=== PATIENT | female | born 1955 | race Caucasian/White ===

== ENCOUNTER 2017-10-12 10:14 | Inpatient (IN) | payer BC ==
[~2017-10-12] VITALS: Ht 160 cm; Wt 103.8 kg
[2017-10-12] MEDS ORDERED: MOM 30ML SUSPENSION UDC PO PRN (12:30)
[2017-10-12] MEDS ORDERED: oxyCODONE 5MG TAB PO PRN (12:30)
[2017-10-12] MEDS ORDERED: BISACODYL 5 MG TAB PO PRN (12:30)
[2017-10-12 14:24] VITALS: BP 134/68
[2017-10-12] MEDS: OMEPRAZOLE 20 MG CAP PO SCH (14:24)
[2017-10-12] MEDS: LEVOTHYROXINE 100MCG TABLET (0.1MG) PO SCH (14:24)
[2017-10-12] MEDS: DULoxetine 30 MG CAP (CYMBALTA) PO SCH (14:24)
[2017-10-12 15:02] LABS: MEAN CORPUSCULAR HEMOGLOBIN 29.2 pg (27.0-33.0); MEAN CORPUSCULAR HGB CONC 31.6 g/dl (32.0-36.5); MEAN CORPUSCULAR VOLUME 92.2 fl (80.0-96.0); PLATELET COUNT, AUTOMATED 169 10^3/uL (150-450); RED CELL DISTRIBUTION WIDTH 15.7 % (11.5-14.5); WHITE BLOOD COUNT 6.8 10^3/uL (4.0-10.0)
[2017-10-12] MEDS ORDERED: LYRI200C PO (15:17)
[2017-10-12] MEDS ORDERED: MELA1TAB PO (15:17)
[2017-10-12] MEDS ORDERED: DOCU100C16 PO (15:17)
[2017-10-12] MEDS ORDERED: DULO1CAP2 PO (15:17)
[2017-10-12] MEDS ORDERED: ROPI0.5T PO (15:17)
[2017-10-12] MEDS ORDERED: TRAZ-136 PO (15:17)
[2017-10-12] MEDS ORDERED: CETI10TA PO (15:17)
[2017-10-12] MEDS ORDERED: BUTR5DIS TD (15:17)
[2017-10-12] MEDS ORDERED: TYLE500T78 PO (15:17)
[2017-10-12] MEDS ORDERED: MILKSUS PO (15:17)
[2017-10-12] MEDS ORDERED: OMEP20CA3 PO (15:17)
[2017-10-12] MEDS ORDERED: SENN1TAB10 PO (15:17)
[2017-10-12] MEDS ORDERED: LEVO100T5 PO (15:17)
[2017-10-12] MEDS: CETIRIZINE (ZyrTEC) 10 MG TAB PO SCH (17:13)
[2017-10-12] MEDS: CEPHALEXIN 500 MG CAP PO SCH ×2 (18:19→21:42)
[2017-10-12] MEDS: ASPIRIN 325 MG TAB PO SCH (18:37)
--- NOTE | 2017-10-12 19:48 | PMRHPE ---
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 Patient's course complicated by deep venous thrombosis (DVT) in the left lower extremity leading to inferior vena cava (IVC) filter placement yesterday and sciatic nerve dissection. HISTORY OF PRESENT ILLNESS: Patient is a 62-year-old white female with 4 year history of left hip and thigh pain that was discovered to be a chondrosarcoma for which she ended up having the radical surgery on 09/22/2017. The patient has been started in physical and occupational therapy, having to be somewhat limited in her skills, mainly doing bed exercises and activities until her thoracic pil-zpbq-nxkze-foot-orthosis was completed, and then she has been started on some gaiting and is now felt to be able to participate in and has expressed great willingness to participate in acute intensive rehabilitation. The patient is right-handed and this has not been affected by her tumor or surgery. PAST MEDICAL HISTORY: Includes morbid obesity, restless leg syndrome, hypothyroidism, nerve pain. The patient with known findings in her right ankle and possible other thigh. Other past medical history includes anxiety, arthritis, depression, gastroesophageal reflux disease (GERD), chronic low back pain. PAST SURGICAL HISTORY: Includes prior foot surgery, tonsillectomy, bilateral bunions. SOCIAL HISTORY: Patient lives with her in a three story house, however they are able to function on the first story, in [place], [place] and have a ramp that leads up to the front door, and bedroom, bath, and kitchen are all on the first level. The patient has never smoked, never used smokeless tobacco, does not use alcohol or illicit drugs. FAMILY HISTORY: Includes cancer in her mother and sister, arthritis in her mother, diabetes in her sister, hip fracture in her sister, and cancer in her sister. ALLERGIES: Patient has no known allergies. MEDICATION ON ADMISSION: - Tylenol 500 mg every 6 hours as needed for pain or fever - aspirin 325 mg daily - Dulcolax tablets 5 mg daily as needed for constipation - Keflex 500 mg every 8 hours times 10 days for prophylaxis - Zyrtec 10 mg daily for allergies - Cymbalta 90 mg daily - Synthroid 100 mcg daily for hypothyroidism - milk of magnesia 30 mL daily as needed for constipation - omeprazole 20 mg daily for GERD - oxycodone 5 mg every 4 hours as needed for moderate to severe pain - Lyrica 200 mg twice a day for nerve pain - Requip 1.5 mg nightly for restless leg syndrome - trazodone 200 mg nightly for sleep and mood REVIEW OF SYSTEMS: Is as noted above with left lower extremity hip pain. PHYSICAL EXAMINATION: The patient is a short, morbidly obese, alert, well oriented, pleasant, late middle aged, white female who looks about stated age of 62. The patient is 5 feet 3 inches, weighs 106.6 kg on the bed scale on admission. VITAL SIGNS: Temperature 98.8, blood pressure 134/68, with pulse 95, respirations 18, and pulse oximetry 94% on room air. HEENT: Normocephalic/atraumatic. Pupils are equal, round, reactive to light and accommodation. Extraocular motions are intact. Oropharynx without significant lesions. Tongue is midline. No facial drooping noted. Hearing is good. NECK: Supple. LUNGS: Clear in all rodriguez to auscultation. CORONARY: Shows regular rate and rhythm with normal S1, S2, without S3 or S4 murmurs or rubs. The patient with good warmth and perfusion of all extremities and functional range of motion of bilateral upper and right lower extremity with notable guarding of the left lower extremity at this time but in appropriate adducted external rotated position in bed. ABDOMEN: Obese, nontender with normal bowel sounds in all quadrants. NEUROLOGIC: The patient is alert and oriented to person, place, time, and situation. Speech is clear, coherent, and appropriate. Affect is pleasant and cooperative. Memory appears to be intact. Mood is good, pleasant and cooperative. Light touch is intact in bilateral upper and right lower extremity and anterior left lower extremity. Posterior left lower extremity not tested at this time. Patient with healing lateral left thigh incision. LABORATORY DATA: The patient had moderate to severe anemia, however laboratory shows hemoglobin and hematocrit of 9.3 and 29.4 on admission, so no transfusion will be needed. DIAGNOSTIC DATA: The patient, who was just transported up from [facility], did not have accompanying images and I will get baseline AP and lateral hip and knee , which should include the thigh and the megaprosthesis to serve as a baseline in case of any movements, pain, or changes in status in the left lower extremity. ASSESSMENT/PLAN: 1. Rehabilitation of left total hip arthroplasty, knee arthroplasty, and femoral shaft due to radical resection of chondrosarcoma of the left thigh. The patient will start in a program of physical and occupational therapy 3 hours per day in divided sessions to try and regain basic activities of daily living and mobility using the thoracic sgm-bgme-svmhe-foot-orthosis to learn how to on and off it for whenever she is up and to build up strength, balance, and control of both lower extremities, and regain modified independence in other activities of daily living and mobility. She does have a supportive and the home environment is conducive to using a wheelchair or walker. However, for the multiple medical appointments the patient will be facing in the future, the more mobile she is, especially with a front wheel walker, the better off she will be. I am anticipating patient will require 14 days. Part of this will also depend on the amount of weakness related to the sciatic nerve involvement in the surgery. 2. Morbid obesity. Patient is on a regular diet, however we will look at appropriate calorie levels, but hopefully normal 2000 calorie diet with the increase in activity should be appropriate, if not a dietary consult will be obtained. 3. Atherosclerotic cardiovascular disease including hypertension. At this point, patient is normotensive and is not requiring any blood pressure medications. We will observe for that. 4. Hypothyroidism. Will proceed with levothyroxine. 5. Chronic back pain/arthritis and nerve pain. The patient will continue with Cymbalta and Lyrica along with nighttime trazodone to assist sleeping, all of these having good analgesic and especially neuropathic pain benefits. The patient will also have oxycodone for the thigh pain and other pain available to her. 6. The patient will be followed by the medicine service with physiatry, physical therapy (PT)/occupational therapy (OT), rehabilitation nursing, as she does have some complexity to her condition, but essentially with the extent of her multiple surgeries and the artificial femur, patient is very complex and providing appropriate structure as well as trying to keep her medical status stable is going to be critical for her. POSTADMISSION PHYSICIAN EVALUATION: The patient is doing a bit better as far as attention and alertness compared to the notes received from [facility], as well as not having the anemia reported with a hemoglobin of 8.1 being the most recent one. The DVT will be treated with aspirin and the inferior vena cava filter at this time, plus trying to progress patient in gaining mobility and trying to keep fluid status appropriate. I do feel that she is highly motivated and I do feel she has a very good support system and a very good environment to be discharged to, and therefore I think she has a good prognosis to participate and benefit from acute intensive rehabilitation and return to home with her in approximately 14 days, further adjustment dependent on how she functions will be addressed. Time spent on chart review, history and physical (H and P), and documentation is greater than 70 minutes. MARIO
[2017-10-12 20:30] VITALS: BP 133/64
[2017-10-12] MEDS: PREGABALIN 100 MG CAP (LYRICA) PO SCH (21:43)
[2017-10-12] MEDS: traZODone 100 MG TAB PO SCH (21:43)
[2017-10-12] MEDS: rOPINIRole 1MG TAB PO SCH (21:43)
[2017-10-13 06:00] VITALS: BP 121/69
[2017-10-13] MEDS: LEVOTHYROXINE 100MCG TABLET (0.1MG) PO SCH (06:02)
[2017-10-13] MEDS: CEPHALEXIN 500 MG CAP PO SCH ×3 (06:03→21:18)
[2017-10-13 06:49] LABS: BASO % 0.3 % (0.0-1.0); EOS # 0.1 10^3/uL (0.0-0.50); EOS % 1.4 % (0.0-3.0); IMMATURE GRANULOCYTE % 0.8 % (0-0); LYMPH # 1.3 10^3/uL (1.5-4.5); LYMPH % 22.6 % (24.0-44.0); MEAN CORPUSCULAR HEMOGLOBIN 29.6 pg (27.0-33.0); MEAN CORPUSCULAR HGB CONC 31.7 g/dl (32.0-36.5); MEAN CORPUSCULAR VOLUME 93.2 fl (80.0-96.0); MONO # 0.4 10^3/uL (0.0-0.8); MONO % 7.3 % (0.0-5.0); NEUTROPHILS % 67.6 % (36.0-66.0); PLATELET COUNT, AUTOMATED 154 10^3/uL (150-450); WHITE BLOOD COUNT 5.9 10^3/uL (4.0-10.0)
[2017-10-13 07:16] LABS: ALBUMIN 2.5 GM/DL (3.2-5.2); ALBUMIN/GLOBULIN RATIO 0.86 (1.00-1.93); ALKALINE PHOSPHATASE 52 U/L (45-117); ALT/SGPT 30 U/L (12-78); ANION GAP 6 MEQ/L (8-16); AST/SGOT 18 U/L (7-37); BILIRUBIN,TOTAL 0.3 MG/DL (0.2-1.0); BLOOD UREA NITROGEN 5 MG/DL (7-18); CARBON DIOXIDE LEVEL 29 MEQ/L (21-32); CHLORIDE LEVEL 107 MEQ/L (98-107); CREATININE FOR GFR 0.49 MG/DL (0.55-1.02); GLOMERULAR FILTRATION RATE > 60.0 (>45); GLUCOSE, FASTING 108 MG/DL (80-110); POTASSIUM SERUM 3.6 MEQ/L (3.5-5.1); SODIUM LEVEL 142 MEQ/L (136-145); TOTAL PROTEIN 5.4 GM/DL (6.4-8.2)
[2017-10-13] MEDS: DULoxetine 30 MG CAP (CYMBALTA) PO SCH (08:32)
[2017-10-13] MEDS: OMEPRAZOLE 20 MG CAP PO SCH (08:32)
[2017-10-13] MEDS: CETIRIZINE (ZyrTEC) 10 MG TAB PO SCH (08:33)
[2017-10-13] MEDS: PREGABALIN 100 MG CAP (LYRICA) PO SCH ×2 (08:34→21:18)
[2017-10-13] MEDS: ASPIRIN 325 MG TAB PO SCH (08:34)
--- NOTE | 2017-10-13 08:48 | REP ---
Clinical: Pain. Technique: Neutral and cross-table lateral views of the left hip. Findings: The patient is status post left femoral replacement. There is no evidence for dislocation. Surrounding soft tissues demonstrate surgical clips and small amount of suspected subcutaneous emphysema which should be correlated clinically. Impression: Status post total left femur replacement. Signed by David Miller MD 10/13/2017 08:40 A
--- NOTE | 2017-10-13 08:54 | REP ---
Clinical: Status post replacement. Technique: AP and lateral views of the left knee. Findings: The patient appears to be status post total femur/knee replacement. Satisfactory alignment to the prosthetic femur and tibial hardware is appreciated. Overlying postsurgical changes are suggested. Impression: Status post femur and knee replacement. Signed by David Miller MD 10/13/2017 08:45 A
[2017-10-13] MEDS ORDERED: AZITHROMYCIN 250 MG TAB PO ONE (09:00)
--- NOTE | 2017-10-13 10:42 | IPNPDOC ---
PM&R Progress Note Glove Cutter Progress Note DATE OF SERVICE: 10/13/17 DATE OF ADMISSION: Oct 12, 2017 at 14:24 INPATIENT REHABILITATION ADMISSION DAY: #2 SUBJECTIVE: Patient is a 62-year-old white female with 4 year history of left hip and thigh pain that was discovered to be a chondrosarcoma for which she ended up having the radical surgery on 09/22/2017 with total femur removal and the sciatic nerve was handled. The patient has expressed great willingness to participate in acute intensive rehabilitation. The patient is right-handed dominant and this has not been affected by her tumor or surgery. She is to use the THKAFO when out of bed. She has left foot drop and some sensory deficits. Pain is fairly well controlled. Patient is on Keflex for 10 days, but UA suggests patient with UTI and patient with apparent fungal rash of buttocks/ perianal/groin region. No complaints today and patient very motivated for starting therapies. ALLERGIES: See Below MEDICATIONS: Reviewed, see below. OBJECTIVE: VITAL SIGNS: Please see below. PHYSICAL EXAMINATION: GENERAL: Morbidly obese middle-aged white female in mild musculoskeletal distress standing with her hip adduction/AFO brace on. Patient alert and well oriented. HEENT: Normocephalic/atraumatic. CARDIOVASCULAR: Regular rate and rhythm with normal S1 and S2. 2/4 bilateral radial pulses. LUNGS: All rodriguez clear to auscultation. ABDOMEN: Obese with healing umbilical incision and normal bowel sounds in all quadrants. NEUROLOGICAL: Patient alert and oriented 4. Speech is clear coherent and appropriate. Affect is pleasant cooperative. Memory is intact. Bilateral upper extremity are sensory motor intact. Right lower extremity is sensory motor intact. Decreased sensation and foot drop in the left lower extremity in the sciatic innervated areas. SKIN: Rash on buttocks and perianal area appears to be fungal. LABORATORY DATA: Reviewed. Please see below. MICROBIOLOGY: Please see below. IMAGING: EXAMINATION REQUESTED: Hip, Ap,Lat LEFT REASON FOR PATIENT VISIT: LEFT KNEE AND HIP REPLACEMENT REASON FOR EXAM/COMMENT: New admit with Left CANDACE/Megaprosthesis/TKA, Use THKAFO Clinical: Pain. Technique: Neutral and cross-table lateral views of the left hip. Findings: The patient is status post left femoral replacement. There is no evidence for dislocation. Surrounding soft tissues demonstrate surgical clips and small amount of suspected subcutaneous emphysema which should be correlated clinically. Impression: Status post total left femur replacement. Signed by David Miller MD 10/13/2017 08:40 A DD: aDvid Miller MD 10/13/17 [id number] DS: BELKIS 10/13/1740 10/13/17 0840 EXAMINATION REQUESTED: Knee, Ap, Lat LEFT REASON FOR PATIENT VISIT: LEFT KNEE AND HIP REPLACEMENT REASON FOR EXAM/COMMENT: New admit with Left CANDACE/Megaprosthesis/TKA, Use THKAFO Clinical: Status post replacement. Technique: AP and lateral views of the left knee. Findings: The patient appears to be status post total femur/knee replacement. Satisfactory alignment to the prosthetic femur and tibial hardware is appreciated. Overlying postsurgical changes are suggested. Impression: Status post femur and knee replacement. Signed by David Miller MD 10/13/2017 08:45 A DD: David Miller MD 10/13/17 [id number] DS: BELKIS 10/13/1745 10/13/1745 DVT prophylaxis ordered?: Aspirin and JO ANN Hose. ASSESSMENT AND PLAN: 1. Rehabilitation of left CANDACE femur replacement and TKA secondary to radical resection of femur for chondrosarcoma: Patient very motivated and happy to start therapy today. She is a bit decondition but without complaints. Physical occupational therapy evaluations to proceed today. After discharge patient will be requiring further evaluation and care by orthopedics and by oncology as in her discharge plan. 2. Anemia: H&H is 9.2 and 29.0% today on 10/13/17 which is stable compared to admission H and H last night. We will continue to watch this as patient had been previously severely anemic. 3. Urinary tract infection: UA is highly consistent with a UTI though urine [employer] is likely be negative in light of patient being on Keflex. However I will go ahead and start patient on Z-wero empirically to broaden antibiotic spectrum. Currently WBC is not suggestive infection at 5.9. We will observe to see how patient is doing. 4. Hypoalbuminemia: Albumin 2.5 today on 10/13/17. We will continue to observe and try improve nutrition as patient is certainly stressed by the extensive left thigh surgery. TIME SPENT: Chart Review, examination and documentation require greater than 25 minutes. Allergies Coded Allergies: No Known Allergies (Unverified , 10/12/17) Vital Signs Vital Signs Date Time Temp Pulse Resp B/P (MAP) Pulse Ox O2 Delivery O2 Flow Rate FiO2 10/13/17 06:00 99.2 94 16 121/69 (86) 96 Room Air Laboratory Data CBC/BMP Laboratory Tests 10/12/17 14:45 Red Blood Count 3.19 L, Mean Corpuscular Volume 92.2, Mean Corpuscular Hemoglobin 29.2, Mean Corpuscular Hemoglobin Concent 31.6 L, Red Cell Distribution Width 15.7 H 10/13/17 06:37 Calcium Level 8.0 L, Aspartate Amino Transf (AST/SGOT) 18, Alanine Aminotransferase (ALT/SGPT) 30, Alkaline Phosphatase 52, Total Bilirubin 0.3, Total Protein 5.4 L, Albumin 2.5 L 10/13/17 06:38 Red Blood Count 3.11 L, Mean Corpuscular Volume 93.2, Mean Corpuscular Hemoglobin 29.6, Mean Corpuscular Hemoglobin Concent 31.7 L, Red Cell Distribution Width 16.0 H, Neutrophils (%) (Auto) 67.6 H, Lymphocytes (%) (Auto ) 22.6 L, Monocytes (%) (Auto) 7.3 H, Eosinophils (%) (Auto) 1.4, Basophils (%) (Auto) 0.3, Neutrophils # (Auto) 4.0, Lymphocytes # (Auto) 1.3 L, Monocytes # ( Auto) 0.4, Eosinophils # (Auto) 0.1, Basophils # (Auto) 0.0 Labs 24H Laboratory Tests 2 10/12/17 14:45: Nucleated Red Blood Cells % (auto) 0.0 10/13/17 04:05: Urine Appearance CLOUDYH, Urine Color YELLOW, Urine pH 7.0, Urine Specific [place] 1.005, Urine Protein 1+H, Urine Glucose (UA) NEGATIVE, Urine Ketones NEGATIVE, Urine Urobilinogen 0.2, Urine Bilirubin NEGATIVE, Urine Leukocyte Esterase 3+H, Urine Blood 2+H, Urine Nitrite POSITIVE, Urine WBC (Auto) TNTCH, Urine RBC (Auto) 30H, Urine Hyaline Casts (Auto) 0, Urine Bacteria (Auto) 3+H, Urine Squamous Epithelial Cells 0, Urine Mucus (Auto) SMALL, Urine Sperm (Auto) 10/13/17 06:37: Anion Gap 6L, Glomerular Filtration Rate > 60.0, Blood Urea Nitrogen 5L, Creatinine 0.49L, Sodium Level 142, Potassium Level 3.6, Chloride Level 107, Carbon Dioxide Level 29, Calcium Level 8.0L, Aspartate Amino Transf (AST/SGOT) 18, Alanine Aminotransferase (ALT/SGPT) 30, Alkaline Phosphatase 52, Total Bilirubin 0.3, Total Protein 5.4L, Albumin 2.5L, Albumin/Globulin Ratio 0.86L 10/13/17 06:38: Nucleated Red Blood Cells % (auto) 0.0, Immature Granulocyte % (Auto) 0.8H, White Blood Count 5.9, Red Blood Count 3.11L, Hemoglobin 9.2L, Hematocrit 29.0L , Mean Corpuscular Volume 93.2, Mean Corpuscular Hemoglobin 29.6, Mean Corpuscular Hemoglobin Concent 31.7L, Red Cell Distribution Width 16.0H, Platelet Count 154, Neutrophils (%) (Auto) 67.6H, Lymphocytes (%) (Auto) 22.6L, Monocytes (%) (Auto) 7.3H, Eosinophils (%) (Auto) 1.4, Basophils (%) (Auto) 0.3 , Neutrophils # (Auto) 4.0, Lymphocytes # (Auto) 1.3L, Monocytes # (Auto) 0.4, Eosinophils # (Auto) 0.1, Basophils # (Auto) 0.0, Immature Granulocyte # (Auto) 0.1H Microbiology Microbiology 10/13/17 Urine Culture, Received Pending Current Medications Current Medications Current Medications Acetaminophen (Tylenol Tab) 500 mg Q6HP PRN PO PAIN OR FEVER; Start 10/12/17 at 12:30; Stop 11/11/17 at 12:29 Aspirin (Aspirin) 325 mg DAILY PO Last administered on 10/13/17t 08:34; Start 10/12/17 at 09:00; Stop 11/11/17 at 08:59 Azithromycin (Zithromax Tab) 250 mg DAILY PO ; Start 10/14/17 at 09:00; Stop 10/18/17 at 12:00 Bisacodyl (Dulcolax Tab) 5 mg DAILYPRN PRN PO CONSTIPATION; Start 10/12/17 at 12:30; Stop 11/11/17 at 12:29 Cephalexin Monohydrate (Keflex) 500 mg Q8H PO Last administered on 10/13/17 06:03; Start 10/12/17 at 14:00; Stop 10/22/17 at 13:59 Cetirizine HCl (ZyrTEC) 10 mg DAILY PO ; Start 10/12/17 at 09:00; Stop at 09:57; Status DC Duloxetine HCl (Cymbalta) 90 mg DAILY PO Last administered on 10/13/17 08:32 ; Start 10/12/17 at 09:00; Stop 11/11/17 at 08:59 Home Med (Med Rec Complete!) ASDIRECTED XX ; Start 10/12/17 at 15:30; Stop at 15:30; Status DC Levothyroxine Sodium (Synthroid) 100 mcg DAILY@06 PO Last administered on 10/13 06:02; Start 10/12/17 at 06:00; Stop 11/11/17 at 05:59 Magnesium Hydroxide (Milk Of Magnesia) 30 ml DAILYPRN PRN PO CONSTIPATION; Start 10/12/17 at 12:30; Stop 11/11/17 at 12:29 Omeprazole (PriLOSEC) 20 mg DAILY PO Last administered on 10/13/17 08:32; Start 10/12/17 at 09:00; Stop 11/11/17 at 08:59 Oxycodone HCl (Roxicodone, Oxyir) 5 mg Q4HP PRN PO PAIN SCALE 6-10; Start at 12:30; Stop 10/19/17 at 12:29 Pregabalin (Lyrica) 200 mg BID PO Last administered on 10/13/17 08:34; Start 10/12/17 at 21:00; Stop 10/19/17 at 20:59 Ropinirole HCl (Requip) 1.5 mg QHS PO Last administered on 10/12/17 21:43; Start 10/12/17 at 21:00; Stop 11/11/17 at 20:59 Trazodone HCl (Desyrel) 200 mg QHS PO Last administered on 10/12/17 21:43; Start 10/12/17 at 21:00; Stop 11/11/17 at 20:59 JESSICA CLAUDIO MD Oct 13, 2017 10:42
--- NOTE | 2017-10-13 12:39 | CR.PDOC ---
[facility] Consultation Consultation CONSULTATION REPORT FOR: Dr Michele REASON FOR CONSULTATION: Medical Management DATE OF VISIT: 10/13/17 ATTENDING: Dr. Enrique Lizarraga PCP: Hailey MALDONADO. Orthopedics. Dr Venkat Conklin [place]. 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 Patient's course complicated by deep venous thrombosis (DVT) in the left lower extremity leading to inferior vena cava (IVC) filter placement 10/11/17. Pt is transferred to the care of KIM Sethi [facility] 10/12/17. Pt at bedside and provides much of history. The Pt currently denies any fevers, chills, weakness, fatigue, Headache, Chest Pain, Shortness of breath, cough, palpitations, abdominal pain, N/V/D or changes in bowel or bladder habits. Pt states her pain is controlled. PMH: Chronic left hip/thigh pain. chronic LBP peripheral neuropathy chronic pain morbid obesity BMI 41.6 restless leg syndrome, hypothyroid anxiety, depression GERD Allergic rhinitis PSH: prior foot surgery tonsillectomy bilateral bunions. SOCHX: Resides in: [facility] Marital Status: Tobacco use: denies ETOH: denies Illicit Drugs: Denies FAMHX: Includes cancer in her mother and sister, arthritis in her mother, diabetes in her sister, hip fracture in her sister, and cancer in her sister. ROS: As noted in HPI, otherwise 11pt ROS of systems reviewed and remarkable only for post menopausal. PE: GEN: 62yoF, appears stated age. Well-nourished, well developed. No acute distress. Alert and oriented x 3. Pleasant, interactive. HEENT: Normocephalic, atraumatic. Pupils are equal, round, and reactive to light. Extraocular movements are intact. No nystagmus appreciated. Sclera are nonicteric. Conjunctiva without injection. Nose midline. Moist mucous membranes. Dentition fair. Pharynx pink and moist, no cobblestoning. Neck supple , trachea midline. No lymphadenopathy or thyromegaly appreciated. CHEST: Regular rate and rhythm, +S1, +S2 LUNGS: Clear to auscultation bilaterally. No wheezes, rales, or rhonchi. Breathing appears symmetric and easy. Patient is speaking in full sentences. No accessory muscle use. ABD: Round, soft, non-tender, non-distended. +Bowel sounds throughout. No rebound or guarding. No costovertebral angle tenderness. EXT: Trace LLE edema. Hip abd pillow in place. SKIN: [place], dry, warm. Capillary refill <2sec. No rashes. NEURO: Alert and oriented x 3. Cranial nerves III-XII are intact. 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 1. S/P Wide resection of left femure, frozen section margins, total femur replacement megaprosthesis left hip hemiarthroplasty, and total knee hinge arthroplasty 09/22/17. Mgmt as per KIM Sethi. Outpt F/U with Orthopedic surgery. Outpt F/U with Oncology. PT/OT/ST as per Dr Leny ALVAREZ. Bowel care as per Dr Guero ALVAREZ. Pain control as per Dr Leny ALVAREZ. Pt remains on Keflex po prophylactic treatement as per Orthopedics. DVT prophylaxis. As per KIM Sethi. 2. LLE DVT post operative 10/10/17, S/P IVC filter 10/11/17. As per [facility] D/C Summary, Anticoagulation ASA 325 mg daily as dictated by Orthopedics and Vascular surgery. Plan is to confirm anticoagulation recommendations with Orthopedic surgeon, any other contraindications to anticoagulation. Check U/S LLE Pt was seen by Vascular surgery at [facility] 10/10/17 re Left CFV DVT, IVC filter was recommended. Per documentation, due to surgery and oozing from site, anticoagulation contraindicated. 3. Possible UTI. T Max 99.2 Pt denies symptoms. UC pending. Pt is currently on Keflex as per Orthopedics. Azithromycin added empirically as per ARU attending. 4. RLS. Cont requip. 5. Hypothyroid. Cont supplement. 6. GERD. PPI. 7. Postoperative anemia. Hgb trend 9s here. (8.1 [place]) Add Fe studies, B12, folate. Stool oB. Monitor. 8. Loose BM. Check GI panel. Thank you for your consultation. We will continue to follow along with you. Vital Signs/I&O Vital Signs Date Time Temp Pulse Resp B/P (MAP) Pulse Ox O2 Delivery O2 Flow Rate FiO2 10/13/17 06:00 99.2 94 16 121/69 (86) 96 Room Air I&O- Last 24 Hours up to 6 AM 10/14/17 06:00 Output Total 200 ml Balance -200 ml Laboratory Data Labs 24H Laboratory Tests 2 10/12/17 14:45: Nucleated Red Blood Cells % (auto) 0.0 10/13/17 04:05: Urine Appearance CLOUDYH, Urine Color YELLOW, Urine pH 7.0, Urine Specific [place] 1.005, Urine Protein 1+H, Urine Glucose (UA) NEGATIVE, Urine Ketones NEGATIVE, Urine Urobilinogen 0.2, Urine Bilirubin NEGATIVE, Urine Leukocyte Esterase 3+H, Urine Blood 2+H, Urine Nitrite POSITIVE, Urine WBC (Auto) TNTCH, Urine RBC (Auto) 30H, Urine Hyaline Casts (Auto) 0, Urine Bacteria (Auto) 3+H, Urine Squamous Epithelial Cells 0, Urine Mucus (Auto) SMALL, Urine Sperm (Auto) 10/13/17 06:37: Anion Gap 6L, Glomerular Filtration Rate > 60.0, Blood Urea Nitrogen 5L, Creatinine 0.49L, Sodium Level 142, Potassium Level 3.6, Chloride Level 107, Carbon Dioxide Level 29, Calcium Level 8.0L, Aspartate Amino Transf (AST/SGOT) 18, Alanine Aminotransferase (ALT/SGPT) 30, Alkaline Phosphatase 52, Total Bilirubin 0.3, Total Protein 5.4L, Albumin 2.5L, Albumin/Globulin Ratio 0.86L 10/13/17 06:38: Nucleated Red Blood Cells % (auto) 0.0, Immature Granulocyte % (Auto) 0.8H, White Blood Count 5.9, Red Blood Count 3.11L, Hemoglobin 9.2L, Hematocrit 29.0L , Mean Corpuscular Volume 93.2, Mean Corpuscular Hemoglobin 29.6, Mean Corpuscular Hemoglobin Concent 31.7L, Red Cell Distribution Width 16.0H, Platelet Count 154, Neutrophils (%) (Auto) 67.6H, Lymphocytes (%) (Auto) 22.6L, Monocytes (%) (Auto) 7.3H, Eosinophils (%) (Auto) 1.4, Basophils (%) (Auto) 0.3 , Neutrophils # (Auto) 4.0, Lymphocytes # (Auto) 1.3L, Monocytes # (Auto) 0.4, Eosinophils # (Auto) 0.1, Basophils # (Auto) 0.0, Immature Granulocyte # (Auto) 0.1H CBC/BMP Laboratory Tests 10/12/17 14:45 Red Blood Count 3.19 L, Mean Corpuscular Volume 92.2, Mean Corpuscular Hemoglobin 29.2, Mean Corpuscular Hemoglobin Concent 31.6 L, Red Cell Distribution Width 15.7 H 10/13/17 06:37 Calcium Level 8.0 L, Aspartate Amino Transf (AST/SGOT) 18, Alanine Aminotransferase (ALT/SGPT) 30, Alkaline Phosphatase 52, Total Bilirubin 0.3, Total Protein 5.4 L, Albumin 2.5 L 10/13/17 06:38 Red Blood Count 3.11 L, Mean Corpuscular Volume 93.2, Mean Corpuscular Hemoglobin 29.6, Mean Corpuscular Hemoglobin Concent 31.7 L, Red Cell Distribution Width 16.0 H, Neutrophils (%) (Auto) 67.6 H, Lymphocytes (%) (Auto ) 22.6 L, Monocytes (%) (Auto) 7.3 H, Eosinophils (%) (Auto) 1.4, Basophils (%) (Auto) 0.3, Neutrophils # (Auto) 4.0, Lymphocytes # (Auto) 1.3 L, Monocytes # ( Auto) 0.4, Eosinophils # (Auto) 0.1, Basophils # (Auto) 0.0 Microbiology Microbiology 10/13/17 Urine Culture, Received Pending Allergies Coded Allergies: No Known Allergies (Unverified , 10/12/17) Home Medications Scheduled Buprenorphine (Butrans) 5 Mcg/Hr Dis, 5 MCG TD QWEEK, (Reported) EVERY 7 DAYS Cetirizine HCl (Cetirizine HCl) 10 Mg Tab, 10 MG PO DAILY, (Reported) Docusate Sodium (Docusate Sodium) 100 Mg Cap, 100 MG PO BID, (Reported) Duloxetine Hcl (Duloxetine HCl) 30 Mg Cap, 90 MG PO DAILY, (Reported) Levothyroxine Sodium (Synthroid) 100 Mcg Tab, 100 MCG PO DAILY, (Reported) Melatonin (Melatonin) 1 Mg Tab, 1 MG PO QHS, (Reported) Omeprazole (Omeprazole) 20 Mg Cap, 20 MG PO DAILY, (Reported) Pregabalin (Lyrica) 200 Mg Cap, 200 MG PO BID, (Reported) Ropinirole Hydrochloride (Ropinirole HCl) 0.5 Mg Tab, 1.5 MG PO QHS, (Reported) Senna (Senna Lax) 8.6 Mg Tab, 2 TAB PO QHS, (Reported) Trazodone HCl (Trazodone HCl) 100 Mg Tab, 200 MG PO QHS, (Reported) Scheduled PRN Acetaminophen (Tylenol Extra Strength) 500 Mg Tab, 500 MG PO Q6H PRN for PAIN, ( Reported) Milk Of Magnesia (Milk of Magnesia) 1,200 Mg/15 Ml Mirna, 30 ML PO DAILY PRN for CONSTIPATION, (Reported) Kelli Ardon Oct 13, 2017 12:39
[2017-10-13] MEDS: NYSTATIN 100,000 UNITS/GM TOPICAL PWD 15 GM TOP SCH ×2 (13:05→21:19)
[2017-10-13 14:00] VITALS: BP 126/62
[2017-10-13 20:00] VITALS: BP 129/59
--- NOTE | 2017-10-13 20:30 | REPUSA ---
Clinical history: Pain, swelling. Findings: The common femoral, superficial femoral, popliteal, and other deep venous structures compre ss normally and demonstrate normal color Doppler flow. Normal venous waveforms with augmentation are seen. Impression: No evidence of deep vein thrombosis in the left femoral popliteal venous system.
[2017-10-13] MEDS: rOPINIRole 1MG TAB PO SCH (21:18)
[2017-10-13] MEDS: traZODone 100 MG TAB PO SCH (21:18)
[2017-10-14] MEDS: LEVOTHYROXINE 100MCG TABLET (0.1MG) PO SCH (05:51)
[2017-10-14] MEDS: CEPHALEXIN 500 MG CAP PO SCH ×3 (05:51→21:30)
[2017-10-14 06:00] VITALS: BP 116/70
[2017-10-14 06:40] LABS: MEAN CORPUSCULAR HEMOGLOBIN 29.6 pg (27.0-33.0); MEAN CORPUSCULAR HGB CONC 31.8 g/dl (32.0-36.5); MEAN CORPUSCULAR VOLUME 93.1 fl (80.0-96.0); PLATELET COUNT, AUTOMATED 126 10^3/uL (150-450); RED CELL DISTRIBUTION WIDTH 15.9 % (11.5-14.5); WHITE BLOOD COUNT 4.4 10^3/uL (4.0-10.0)
[2017-10-14 07:09] LABS: ALBUMIN 2.4 GM/DL (3.2-5.2); ALKALINE PHOSPHATASE 49 U/L (45-117); ALT/SGPT 25 U/L (12-78); ANION GAP 6 MEQ/L (8-16); AST/SGOT 18 U/L (7-37); BILIRUBIN,TOTAL 0.3 MG/DL (0.2-1.0); BLOOD UREA NITROGEN 9 MG/DL (7-18); CARBON DIOXIDE LEVEL 29 MEQ/L (21-32); CHLORIDE LEVEL 106 MEQ/L (98-107); CREATININE FOR GFR 0.47 MG/DL (0.55-1.02); FERRITIN 104 NG/ML (8-252); GLOMERULAR FILTRATION RATE > 60.0 (>45); GLUCOSE, FASTING 108 MG/DL (80-110); PERCENT SATURATION 18.7 % (13.2-45.0); POTASSIUM SERUM 3.6 MEQ/L (3.5-5.1); SODIUM LEVEL 141 MEQ/L (136-145); TOTAL IRON BINDING CAPACITY 187 UG/DL (250-450); TOTAL PROTEIN 5.4 GM/DL (6.4-8.2)
[2017-10-14] MEDS: PREGABALIN 100 MG CAP (LYRICA) PO SCH ×2 (08:27→21:30)
[2017-10-14] MEDS: DULoxetine 30 MG CAP (CYMBALTA) PO SCH (08:27)
[2017-10-14] MEDS: AZITHROMYCIN 250 MG TAB PO SCH (08:28)
[2017-10-14] MEDS: OMEPRAZOLE 20 MG CAP PO SCH (08:28)
[2017-10-14] MEDS: ASPIRIN 325 MG TAB PO SCH (08:28)
[2017-10-14] MEDS: NYSTATIN 100,000 UNITS/GM TOPICAL PWD 15 GM TOP SCH ×2 (08:30→21:30)
[2017-10-14] MEDS: LACTOBACILLUS ACIDOPHILUS CAP (BACID) PO SCH ×2 (09:00→21:30)
[2017-10-14] MEDS ORDERED: INFLUENZA QUADRIVALENT PF VACCINE 0.5ML SYRINGE (90686) IM ONE (09:00)
[2017-10-14 09:24] LABS: FOLATE 6.2 NG/ML (>5.4); VITAMIN B12 LEVEL 431 PG/ML (247-911)
--- NOTE | 2017-10-14 13:39 | ECGEPIP ---
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
--- NOTE | 2017-10-14 14:06 | IPNPDOC ---
Date Seen The patient was seen on 10/14/17. Progress Note CONSULTATION REPORT FOR: Dr Michele REASON FOR CONSULTATION: Medical Management DATE OF VISIT: 10/13/17 ATTENDING: Dr. Enrique Lizarraga PCP: Hailey MALDONADO. Orthopedics. Dr Venkat Conklin [place]. 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 Patient's course complicated by deep venous thrombosis (DVT) in the left lower extremity leading to inferior vena cava (IVC) filter placement 10/11/17. Pt is transferred to the care of Dr Michele [facility] 10/12/17. The Pt currently denies any fevers, chills, weakness, fatigue, Headache, Chest Pain, Shortness of breath, cough, palpitations, abdominal pain, N/V/D or changes in bowel or bladder habits. Pt states her pain is controlled. PMH: Chronic left hip/thigh pain. chronic LBP peripheral neuropathy chronic pain morbid obesity BMI 41.6 restless leg syndrome, hypothyroid anxiety, depression GERD Allergic rhinitis PSH: prior foot surgery tonsillectomy bilateral bunions. PE: GEN: 62yoF, appears stated age. Well-nourished, well developed. No acute distress. Alert and oriented x 3. Pleasant, interactive. HEENT: Normocephalic, atraumatic. Pupils are equal, round, and reactive to light. Extraocular movements are intact. No nystagmus appreciated. Sclera are nonicteric. Conjunctiva without injection. Nose midline. Moist mucous membranes. Dentition fair. Pharynx pink and moist, no cobblestoning. Neck supple , trachea midline. No lymphadenopathy or thyromegaly appreciated. CHEST: Regular rate and rhythm, +S1, +S2 LUNGS: Clear to auscultation bilaterally. No wheezes, rales, or rhonchi. Breathing appears symmetric and easy. Patient is speaking in full sentences. No accessory muscle use. ABD: Round, soft, non-tender, non-distended. +Bowel sounds throughout. No rebound or guarding. No costovertebral angle tenderness. EXT: Trace LLE edema. Hip abd pillow in place. SKIN: [place], dry, warm. Capillary refill <2sec. No rashes. NEURO: Alert and oriented x 3. Cranial nerves III-XII are intact. XR L Knee Status post femur and knee replacement XR Left hip Status post total left femur replacement. U/S LLE : The common femoral, superficial femoral, popliteal, and other deep venous structures compress normally and demonstrate normal color Doppler flow. Normal venous waveforms with augmentation are seen. Impression: No evidence of deep vein thrombosis in the left femoral popliteal venous system. 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 1. S/P Wide resection of left femure, frozen section margins, total femur replacement megaprosthesis left hip hemiarthroplasty, and total knee hinge arthroplasty 09/22/17. Mgmt as per KIM Sethi. Outpt F/U with Orthopedic surgery. Dr Robledo. Outpt F/U planned with Oncology in [place]. PT/OT/ST as per Dr Leny ALVAREZ. Bowel care as per Dr Guero ALVAREZ. Pain control as per Dr Leny ALVAREZ. Pt remains on Keflex po prophylactic treatement as per Orthopedics. DVT prophylaxis. As per KIM Sethi. 2. LLE DVT post operative 10/10/17, S/P IVC filter 10/11/17. As per [facility] D/C Summary, Anticoagulation ASA 325 mg daily as dictated by Orthopedics and Vascular surgery. Pt was seen by Vascular surgery at [facility] 10/10/17 re Left CFV DVT, IVC filter was recommended. Per documentation, due to surgery and oozing from site, anticoagulation contraindicated. Plan was to confirm anticoagulation recommendations with Orthopedic surgeon, any other contraindications to anticoagulation. Subsequently we have discussed with the pt surgeon 10/14/17, Dr Robledo. He recommends ASA 325mg daily. Orthopedic surgery states that Pt is a bleeding risk related to her extensive surgery and does not recommend full dose anticoagulation at this time or in the near future. He clears the pt to receive Lovenox prophylactic dosing 40mg daily. U/S LLE as above. 3. Possible UTI. T Max 99.0 Pt denies symptoms. UC pending. Pt is currently on Keflex as per Orthopedics. Azithromycin added empirically as per ARU attending. Add bacid po BID. 4. RLS. Cont requip. 5. Hypothyroid. Cont supplement. 6. GERD. PPI. 7. Postoperative anemia. Hgb trend 9s here. (8.1 [place]) Add Fe studies, B12, folate. Stool oB neg. Monitor. 8. Loose BM. x 1 only today. Monitor. GI panel negative. Add Bacid po BID. VS, I&O, 24H, Fishbone Vital Signs/I&O Vital Signs Date Time Temp Pulse Resp B/P (MAP) Pulse Ox O2 Delivery O2 Flow Rate FiO2 10/14/17 06:00 99.0 94 16 116/70 (85) 97 Room Air I&O- Last 24 Hours up to 6 AM 10/15/17 06:00 Intake Total 720 ml Output Total 200 ml Balance 520 ml Laboratory Data 24H LABS Laboratory Tests 2 10/14/17 06:30: Nucleated Red Blood Cells % (auto) 0.0, Anion Gap 6L, Glomerular Filtration Rate > 60.0, Blood Urea Nitrogen 9#, Creatinine 0.47L, Sodium Level 141, Potassium Level 3.6, Chloride Level 106, Carbon Dioxide Level 29, Calcium Level 8.0L, Aspartate Amino Transf (AST/SGOT) 18, Alanine Aminotransferase (ALT/SGPT) 25, Alkaline Phosphatase 49, Total Bilirubin 0.3, Total Protein 5.4L, Albumin 2.4L, Iron Level 35L, Total Iron Binding Capacity 187L, Transferrin % Saturation 18.7, Ferritin 104, Albumin/Globulin Ratio 0.80L, Vitamin B12 Level 431, Folate 6.2 CBC/BMP Laboratory Tests 10/14/17 06:30 Red Blood Count 3.04 L, Mean Corpuscular Volume 93.1, Mean Corpuscular Hemoglobin 29.6, Mean Corpuscular Hemoglobin Concent 31.8 L, Red Cell Distribution Width 15.9 H, Calcium Level 8.0 L, Aspartate Amino Transf (AST/SGOT ) 18, Alanine Aminotransferase (ALT/SGPT) 25, Alkaline Phosphatase 49, Total Bilirubin 0.3, Total Protein 5.4 L, Albumin 2.4 L Microbiology Microbiology 10/14/17 Stool Occult Blood (GONZALEZ) - Final, Complete 10/14/17 Stool Occult Blood (GONZALEZ) - Final, Complete 10/13/17 Stool Occult Blood (GONZALEZ) - Final, Complete 10/13/17 Gastrointestinal Tract Panel (PCR) - Final, Complete 10/13/17 Urine Culture, Received Pending 10/13/17 Urine Culture, Received Pending Kelli Ardon Oct 14, 2017 14:06
[2017-10-14 14:16] VITALS: BP 122/65
[2017-10-14 20:00] VITALS: BP 123/66
[2017-10-14] MEDS: rOPINIRole 1MG TAB PO SCH (21:29)
[2017-10-14] MEDS: traZODone 100 MG TAB PO SCH (21:31)
[2017-10-15 05:00] VITALS: BP 133/63
[2017-10-15] MEDS: CEPHALEXIN 500 MG CAP PO SCH ×3 (06:16→21:15)
[2017-10-15] MEDS: LEVOTHYROXINE 100MCG TABLET (0.1MG) PO SCH (06:17)
[2017-10-15] MEDS: LACTOBACILLUS ACIDOPHILUS CAP (BACID) PO SCH ×2 (08:54→21:00)
[2017-10-15] MEDS: OMEPRAZOLE 20 MG CAP PO SCH (08:54)
[2017-10-15] MEDS: AZITHROMYCIN 250 MG TAB PO SCH (08:54)
[2017-10-15] MEDS: ASPIRIN 325 MG TAB PO SCH (08:54)
[2017-10-15] MEDS: PREGABALIN 100 MG CAP (LYRICA) PO SCH ×2 (08:55→21:14)
[2017-10-15] MEDS: DULoxetine 30 MG CAP (CYMBALTA) PO SCH (08:55)
[2017-10-15] MEDS: ENOXAPARIN 40 MG/0.4 ML SYRINGE (J1650) SC SCH (08:55)
[2017-10-15] MEDS: NYSTATIN 100,000 UNITS/GM TOPICAL PWD 15 GM TOP SCH ×2 (08:56→21:17)
[2017-10-15 14:00] VITALS: BP 138/76
[2017-10-15 20:25] VITALS: BP 135/73
[2017-10-15] MEDS: rOPINIRole 1MG TAB PO SCH (21:13)
[2017-10-15] MEDS: traZODone 100 MG TAB PO SCH (21:14)
[2017-10-15] MEDS: RAMELTEON 8 MG TAB (ROZEREM) PO PRN (22:35)
[2017-10-16 05:28] VITALS: BP 141/68
[2017-10-16] MEDS: CEPHALEXIN 500 MG CAP PO SCH ×3 (05:57→21:14)
[2017-10-16] MEDS: LEVOTHYROXINE 100MCG TABLET (0.1MG) PO SCH (05:57)
[2017-10-16] MEDS: ACETAMINOPHEN 500 MG TAB PO PRN ×2 (06:28→18:48)
[2017-10-16] MEDS: PREGABALIN 100 MG CAP (LYRICA) PO SCH ×2 (09:21→20:12)
[2017-10-16] MEDS: ASPIRIN 325 MG TAB PO SCH (09:21)
[2017-10-16] MEDS: ENOXAPARIN 40 MG/0.4 ML SYRINGE (J1650) SC SCH (09:21)
[2017-10-16] MEDS: LACTOBACILLUS ACIDOPHILUS CAP (BACID) PO SCH ×2 (09:21→20:12)
[2017-10-16] MEDS: OMEPRAZOLE 20 MG CAP PO SCH (09:21)
[2017-10-16] MEDS: NYSTATIN 100,000 UNITS/GM TOPICAL PWD 15 GM TOP SCH ×2 (09:22→20:15)
[2017-10-16] MEDS: DULoxetine 30 MG CAP (CYMBALTA) PO SCH (09:22)
[2017-10-16] MEDS: AZITHROMYCIN 250 MG TAB PO SCH (09:22)
[2017-10-16 14:00] VITALS: BP 129/63
[2017-10-16 20:00] VITALS: BP 123/66
[2017-10-16] MEDS: traZODone 100 MG TAB PO SCH (20:12)
[2017-10-16] MEDS: rOPINIRole 1MG TAB PO SCH (20:13)
[2017-10-16] MEDS: RAMELTEON 8 MG TAB (ROZEREM) PO PRN (21:18)
[2017-10-17] MEDS: LEVOTHYROXINE 100MCG TABLET (0.1MG) PO SCH (05:27)
[2017-10-17] MEDS: CEPHALEXIN 500 MG CAP PO SCH ×3 (05:27→21:13)
[2017-10-17 06:00] VITALS: BP 138/63
[2017-10-17 06:59] LABS: MEAN CORPUSCULAR HEMOGLOBIN 29.7 pg (27.0-33.0); MEAN CORPUSCULAR HGB CONC 31.6 g/dl (32.0-36.5); MEAN CORPUSCULAR VOLUME 93.9 fl (80.0-96.0); PLATELET COUNT, AUTOMATED 110 10^3/uL (150-450); RED CELL DISTRIBUTION WIDTH 16.1 % (11.5-14.5); WHITE BLOOD COUNT 2.8 10^3/uL (4.0-10.0)
[2017-10-17] MEDS: ENOXAPARIN 40 MG/0.4 ML SYRINGE (J1650) SC SCH (08:31)
[2017-10-17] MEDS: NYSTATIN 100,000 UNITS/GM TOPICAL PWD 15 GM TOP SCH ×2 (08:31→21:14)
[2017-10-17] MEDS: ASPIRIN 325 MG TAB PO SCH (08:32)
[2017-10-17] MEDS: LACTOBACILLUS ACIDOPHILUS CAP (BACID) PO SCH ×2 (08:32→21:13)
[2017-10-17] MEDS: DULoxetine 30 MG CAP (CYMBALTA) PO SCH (08:32)
[2017-10-17] MEDS: PREGABALIN 100 MG CAP (LYRICA) PO SCH ×2 (08:32→21:13)
[2017-10-17] MEDS: AZITHROMYCIN 250 MG TAB PO SCH (08:32)
[2017-10-17] MEDS: OMEPRAZOLE 20 MG CAP PO SCH (08:32)
[2017-10-17] MEDS: ACETAMINOPHEN 500 MG TAB PO PRN ×2 (10:09→17:07)
[2017-10-17 14:00] VITALS: BP 109/55
[2017-10-17] MEDS: LevoFLOXacin 500 MG TABLET PO SCH (14:19)
--- NOTE | 2017-10-17 14:58 | IPNPDOC ---
Date Seen The patient was seen on 10/17/17. Progress Note CONSULTATION REPORT FOR: Dr Michele REASON FOR CONSULTATION: Medical Management DATE OF VISIT: 10/13/17 ATTENDING: Dr. Enrique Lizarraga PCP: Hailey MALDONADO. Orthopedics. Dr Venkat Conklin [place]. 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 Patient's course complicated by deep venous thrombosis (DVT) in the left lower extremity leading to inferior vena cava (IVC) filter placement 10/11/17. Pt is transferred to the care of Dr Michele [facility] 10/12/17. The Pt currently denies any fevers, chills, weakness, fatigue, Headache, Chest Pain, Shortness of breath, cough, palpitations, abdominal pain, N/V/D or changes in bowel or bladder habits. Pt states her pain is controlled. PMH: Chronic left hip/thigh pain. chronic LBP peripheral neuropathy chronic pain morbid obesity BMI 41.6 restless leg syndrome, hypothyroid anxiety, depression GERD Allergic rhinitis PSH: prior foot surgery tonsillectomy bilateral bunions. PE: GEN: 62yoF, appears stated age. Well-nourished, well developed. No acute distress. Alert and oriented x 3. Pleasant, interactive. HEENT: Normocephalic, atraumatic. Pupils are equal, round, and reactive to light. Extraocular movements are intact. No nystagmus appreciated. Sclera are nonicteric. Conjunctiva without injection. Nose midline. Moist mucous membranes. CHEST: Regular rate and rhythm, +S1, +S2 LUNGS: Clear to auscultation bilaterally. No wheezes, rales, or rhonchi. Breathing appears symmetric and easy. Patient is speaking in full sentences. No accessory muscle use. ABD: Round, soft, non-tender, non-distended. +Bowel sounds throughout. No rebound or guarding. No costovertebral angle tenderness. EXT: Trace LLE edema. Brace in place. SKIN: [place], dry, warm. Capillary refill <2sec. No rashes. NEURO: Alert and oriented x 3. Cranial nerves III-XII are intact. XR L Knee Status post femur and knee replacement XR Left hip Status post total left femur replacement. U/S LLE : The common femoral, superficial femoral, popliteal, and other deep venous structures compress normally and demonstrate normal color Doppler flow. Normal venous waveforms with augmentation are seen. Impression: No evidence of deep vein thrombosis in the left femoral popliteal venous system. 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 1. S/P Wide resection of left femure, frozen section margins, total femur replacement megaprosthesis left hip hemiarthroplasty, and total knee hinge arthroplasty 09/22/17. Mgmt as per KIM Sethi. Outpt F/U with Orthopedic surgery. Dr Robledo. Outpt F/U planned with Oncology in [place]. PT/OT/ST as per Dr Leny ALVAREZ. Bowel care as per Dr Guero ALVAREZ. Pain control as per Dr Leny ALVAREZ. Pt remains on Keflex po prophylactic treatement as per Orthopedics. DVT prophylaxis. As per KIM Sethi. 2. LLE DVT post operative 10/10/17, S/P IVC filter 10/11/17. As per [facility] D/C Summary, Anticoagulation ASA 325 mg daily as dictated by Orthopedics and Vascular surgery. Pt was seen by Vascular surgery at [facility] 10/10/17 re Left CFV DVT, IVC filter was recommended. Per documentation, due to surgery and oozing from site, anticoagulation contraindicated. Plan was to confirm anticoagulation recommendations with Orthopedic surgeon, any other contraindications to anticoagulation. Subsequently we have discussed with the pt surgeon 10/14/17, Dr Robledo. He recommends ASA 325mg daily. Orthopedic surgery states that Pt is a bleeding risk related to her extensive surgery and does not recommend full dose anticoagulation at this time or in the near future. He clears the pt to receive Lovenox prophylactic dosing 40mg daily. U/S LLE as above. 3. UTI. Afebrile. Pt denies symptoms. UC as above. Pt is currently on Keflex as per Orthopedics. D/C Azithromycin Levaquin 500mg po x 7 days. Cont bacid po BID. 4. RLS. Cont requip. 5. Hypothyroid. Cont supplement. 6. GERD. PPI. 7. Postoperative anemia. Hgb trend 9s here. (8.1 [place]) Fe studies, B12, folate. Stool oB neg. Monitor. 8. Loose BM. x 1 only today. Monitor. GI panel negative. Bacid po BID. VS, I&O, 24H, Fishbone Vital Signs/I&O Vital Signs Date Time Temp Pulse Resp B/P (MAP) Pulse Ox O2 Delivery O2 Flow Rate FiO2 10/17/17 14:00 97.4 95 18 109/55 (73) 98 Room Air I&O- Last 24 Hours up to 6 AM 10/18/17 06:00 Intake Total 840 ml Balance 840 ml Laboratory Data 24H LABS Laboratory Tests 2 10/17/17 06:21: Nucleated Red Blood Cells % (auto) 0.0 CBC/BMP Laboratory Tests 10/17/17 06:21 Red Blood Count 2.93 L, Mean Corpuscular Volume 93.9, Mean Corpuscular Hemoglobin 29.7, Mean Corpuscular Hemoglobin Concent 31.6 L, Red Cell Distribution Width 16.1 H Microbiology Microbiology 10/14/17 Stool Occult Blood (GONZALEZ) - Final, Complete 10/14/17 Stool Occult Blood (GONZALEZ) - Final, Complete 10/13/17 Stool Occult Blood (GONZALEZ) - Final, Complete 10/13/17 Gastrointestinal Tract Panel (PCR) - Final, Complete 10/13/17 Urine Culture - Final, Complete Escherichia Coli 10/13/17 Urine Culture - Final, Complete Escherichia Coli Pseudomonas Aeruginosa Enterococcus Faecalis Kelli Ardon Oct 17, 2017 14:57
[2017-10-17 20:00] VITALS: BP 127/75
[2017-10-17] MEDS: traZODone 100 MG TAB PO SCH (21:13)
[2017-10-17] MEDS: rOPINIRole 1MG TAB PO SCH (21:13)
[2017-10-17] MEDS: RAMELTEON 8 MG TAB (ROZEREM) PO PRN (21:41)
[2017-10-18] MEDS: LevoFLOXacin 500 MG TABLET PO SCH (05:44)
[2017-10-18] MEDS: LEVOTHYROXINE 100MCG TABLET (0.1MG) PO SCH (05:44)
[2017-10-18] MEDS: CEPHALEXIN 500 MG CAP PO SCH ×3 (05:44→21:03)
[2017-10-18 06:00] VITALS: BP 133/60
[2017-10-18 06:39] LABS: MEAN CORPUSCULAR HEMOGLOBIN 29.3 pg (27.0-33.0); MEAN CORPUSCULAR HGB CONC 30.9 g/dl (32.0-36.5); MEAN CORPUSCULAR VOLUME 94.6 fl (80.0-96.0); PLATELET COUNT, AUTOMATED 108 10^3/uL (150-450); RED CELL DISTRIBUTION WIDTH 15.9 % (11.5-14.5); WHITE BLOOD COUNT 2.7 10^3/uL (4.0-10.0)
[2017-10-18 06:53] LABS: ANION GAP 6 MEQ/L (8-16); BLOOD UREA NITROGEN 10 MG/DL (7-18); CALCIUM LEVEL 8.4 MG/DL (8.8-10.2); CARBON DIOXIDE LEVEL 30 MEQ/L (21-32); CHLORIDE LEVEL 105 MEQ/L (98-107); CREATININE FOR GFR 0.52 MG/DL (0.55-1.02); GLOMERULAR FILTRATION RATE > 60.0 (>45); GLUCOSE, FASTING 116 MG/DL (80-110); SODIUM LEVEL 141 MEQ/L (136-145)
[2017-10-18] MEDS: LACTOBACILLUS ACIDOPHILUS CAP (BACID) PO SCH ×2 (08:47→21:03)
[2017-10-18] MEDS: DULoxetine 30 MG CAP (CYMBALTA) PO SCH (08:47)
[2017-10-18] MEDS: ENOXAPARIN 40 MG/0.4 ML SYRINGE (J1650) SC SCH (08:47)
[2017-10-18] MEDS: ASPIRIN 325 MG TAB PO SCH (08:47)
[2017-10-18] MEDS: NYSTATIN 100,000 UNITS/GM TOPICAL PWD 15 GM TOP SCH ×2 (08:48→21:08)
[2017-10-18] MEDS: PREGABALIN 100 MG CAP (LYRICA) PO SCH ×2 (08:48→21:04)
[2017-10-18] MEDS: ACETAMINOPHEN 500 MG TAB PO PRN (08:48)
[2017-10-18] MEDS: OMEPRAZOLE 20 MG CAP PO SCH (08:48)
[2017-10-18 14:00] VITALS: BP 122/57
--- NOTE | 2017-10-18 15:08 | IPNPDOC ---
Date Seen The patient was seen on 10/18/17. Progress Note CONSULTATION REPORT FOR: Dr Michele REASON FOR CONSULTATION: Medical Management DATE OF VISIT: 10/13/17 ATTENDING: Dr. Enrique Lizarraga PCP: Hailey MALDONADO. Orthopedics. Dr Venkat Conklin NE. 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 Patient's course complicated by deep venous thrombosis (DVT) in the left lower extremity leading to inferior vena cava (IVC) filter placement 10/11/17. Pt is transferred to the care of Dr Michele [facility] 10/12/17. The Pt currently denies any fevers, chills, weakness, fatigue, Headache, Chest Pain, Shortness of breath, cough, palpitations, abdominal pain, N/V/D or changes in bowel or bladder habits. Pt states her pain is controlled. PMH: Chronic left hip/thigh pain. chronic LBP peripheral neuropathy chronic pain morbid obesity BMI 41.6 restless leg syndrome, hypothyroid anxiety, depression GERD Allergic rhinitis PSH: prior foot surgery tonsillectomy bilateral bunions. PE: GEN: 62yoF, appears stated age. Well-nourished, well developed. No acute distress. Alert and oriented x 3. Pleasant, interactive. HEENT: Normocephalic, atraumatic. Pupils are equal, round, and reactive to light. Extraocular movements are intact. No nystagmus appreciated. Sclera are nonicteric. Conjunctiva without injection. Nose midline. Moist mucous membranes. CHEST: Regular rate and rhythm, +S1, +S2 LUNGS: Clear to auscultation bilaterally. No wheezes, rales, or rhonchi. Breathing appears symmetric and easy. Patient is speaking in full sentences. No accessory muscle use. ABD: Round, soft, non-tender, non-distended. +Bowel sounds throughout. No rebound or guarding. No costovertebral angle tenderness. EXT: Trace LLE edema. Brace in place. SKIN: [place], dry, warm. Capillary refill <2sec. No rashes. NEURO: Alert and oriented x 3. Cranial nerves III-XII are intact. XR L Knee Status post femur and knee replacement XR Left hip Status post total left femur replacement. U/S LLE : The common femoral, superficial femoral, popliteal, and other deep venous structures compress normally and demonstrate normal color Doppler flow. Normal venous waveforms with augmentation are seen. Impression: No evidence of deep vein thrombosis in the left femoral popliteal venous system. 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 1. S/P Wide resection of left femur, frozen section margins, total femur replacement megaprosthesis left hip hemiarthroplasty, and total knee hinge arthroplasty 09/22/17. Mgmt as per KIM Sethi. Outpt F/U with Orthopedic surgery. Dr Robledo. Outpt F/U planned with Oncology in [place]. PT/OT/ST as per Dr Leny ALVAREZ. Bowel care as per Dr Guero ALVAREZ. Pain control as per Dr Leny ALVAREZ. Pt remains on Keflex po prophylactic treatement as per Orthopedics. DVT prophylaxis. As per KIM eSthi. 2. LLE DVT post operative 10/10/17, S/P IVC filter 10/11/17. As per [facility] D/C Summary, Anticoagulation ASA 325 mg daily as dictated by Orthopedics and Vascular surgery. Pt was seen by Vascular surgery at [facility] 10/10/17 re Left CFV DVT, IVC filter was recommended. Per documentation, due to surgery and oozing from site, anticoagulation contraindicated. Plan was to confirm anticoagulation recommendations with Orthopedic surgeon, any other contraindications to anticoagulation. Subsequently we have discussed with the pt surgeon 10/14/17, Dr Robledo. He recommends ASA 325mg daily. Orthopedic surgery states that Pt is a bleeding risk related to her extensive surgery and does not recommend full dose anticoagulation at this time or in the near future. He clears the pt to receive Lovenox prophylactic dosing 40mg daily. U/S LLE as above. 3. UTI. Afebrile. Pt denies symptoms. UC as above. Pt is currently on Keflex as per Orthopedics. D/C Azithromycin Levaquin 500mg po x 7 days. Cont bacid po BID. 4. RLS. Cont requip. 5. Hypothyroid. Cont supplement. 6. GERD. PPI. 7. Postoperative anemia. Hgb trend 9s here. (8.1 [place]) Fe studies, B12, folate. Stool oB neg. Pt noted to have decreased Hgb, Plt and leukocytopenia over past 2- 3 days. Pt has received 4 doses of Lovenox. Will D/C Lovenox, cont ASA. Check Plt Antibody and peripheral smear. Monitor. 8. Loose BM. Improved. Monitor. GI panel negative. Bacid po BID. VS, I&O, 24H, Fishbone Vital Signs/I&O Vital Signs Date Time Temp Pulse Resp B/P (MAP) Pulse Ox O2 Delivery O2 Flow Rate FiO2 10/18/17 06:00 99.1 92 18 133/60 (84) 94 Room Air I&O- Last 24 Hours up to 6 AM 10/19/17 06:00 Intake Total 240 ml Balance 240 ml Laboratory Data 24H LABS Laboratory Tests 2 10/18/17 06:25: Nucleated Red Blood Cells % (auto) 0.0, Anion Gap 6L, Glomerular Filtration Rate > 60.0, Blood Urea Nitrogen 10, Creatinine 0.52L, Sodium Level 141, Potassium Level 4.0, Chloride Level 105, Carbon Dioxide Level 30, Calcium Level 8.4L CBC/BMP Laboratory Tests 10/18/17 06:25 Red Blood Count 2.94 L, Mean Corpuscular Volume 94.6, Mean Corpuscular Hemoglobin 29.3, Mean Corpuscular Hemoglobin Concent 30.9 L, Red Cell Distribution Width 15.9 H, Calcium Level 8.4 L Microbiology Microbiology 10/14/17 Stool Occult Blood (GONZALEZ) - Final, Complete 10/14/17 Stool Occult Blood (GONZALEZ) - Final, Complete 10/13/17 Stool Occult Blood (GONZALEZ) - Final, Complete 10/13/17 Gastrointestinal Tract Panel (PCR) - Final, Complete 10/13/17 Urine Culture - Final, Complete Escherichia Coli 10/13/17 Urine Culture - Final, Complete Escherichia Coli Pseudomonas Aeruginosa Enterococcus Faecalis Kelli Ardon Oct 18, 2017 15:08
[2017-10-18 15:37] LABS: REASON FOR REVIEW COMPREHENSIVE REVIEW
--- NOTE | 2017-10-18 18:06 | IPNPDOC ---
PM&R Progress Note Lubrication Servicer Progress Note DATE OF SERVICE: 10/18/17 DATE OF ADMISSION: Oct 12, 2017 at 14:24 INPATIENT REHABILITATION ADMISSION DAY: #7 SUBJECTIVE: Patient is a 62-year-old white female with 4 year history of left hip and thigh pain that was discovered to be a chondrosarcoma for which she ended up having the radical surgery on 09/22/2017 with total femur removal and the sciatic nerve was handled. The patient has expressed great willingness to participate in acute intensive rehabilitation. The patient is right-handed dominant and this has not been affected by her tumor or surgery. She is to use the THKAFO when out of bed. She has left foot drop and some sensory deficits. Pain is fairly well controlled. Patient with apparent fungal rash of buttocks/ perianal/groin region. No complaints today and patient very motivated for therapies. ALLERGIES: See Below MEDICATIONS: Reviewed, see below. OBJECTIVE: VITAL SIGNS: Please see below. PHYSICAL EXAMINATION: GENERAL: Morbidly obese middle-aged white female in mild musculoskeletal distress standing with her hip adduction/AFO brace on. Patient alert and well oriented. HEENT: Normocephalic/atraumatic. CARDIOVASCULAR: Regular rate and rhythm with normal S1 and S2. 2/4 bilateral radial pulses. LUNGS: All rodriguez clear to auscultation. ABDOMEN: Obese with healing umbilical incision and normal bowel sounds in all quadrants. NEUROLOGICAL: Patient alert and oriented 4. Speech is clear coherent and appropriate. Affect is pleasant cooperative. Memory is intact. Bilateral upper extremity are sensory motor intact. Right lower extremity is sensory motor intact. Decreased sensation and foot drop in the left lower extremity in the sciatic innervated areas. SKIN: Rash on buttocks and perianal area appears to be fungal. LABORATORY DATA: Reviewed. Please see below. MICROBIOLOGY: Please see below. IMAGING: EXAMINATION REQUESTED: Duplex, Ext,LOWER veins,unilat LEFT REASON FOR PATIENT VISIT: LEFT KNEE AND HIP REPLACEMENT REASON FOR EXAM/COMMENT: LLE Clinical history: Pain, swelling. Findings: The common femoral, superficial femoral, popliteal, and other deep venous structures compress normally and demonstrate normal color Doppler flow. Normal venous waveforms with augmentation are seen. Impression: No evidence of deep vein thrombosis in the left femoral popliteal venous system. DD: MALOU TERRAZAS MD 10/13/172019 DT: WERNER 10/13/172019 DS: FAZAL 10/13/17201910/13/172019 DVT prophylaxis ordered?: Aspirin and JO ANN Silverman. ASSESSMENT AND PLAN: 1. Rehabilitation of left CANDACE femur replacement and TKA secondary to radical resection of femur for chondrosarcoma: Patient very motivated and happy to participate in therapy. She is a bit decondition but without complaints. Patient progressing well in PT/OT thought limited by THAFO donning and doffing as well as LLE weakness. After discharge patient will be requiring further evaluation and care by orthopedics and by oncology as in her discharge plan. 2. Anemia: H&H is 806 and 27.8% today on 10/18/17 which is stable to mildly sliding down. We will continue to watch this as patient had been previously severely anemic. 3. Urinary tract infection: UA is highly consistent with a UTI though urine TRAFFIC SIGN ERECTION SUPERVISOR is likely be negative in light of patient being on Keflex. However I will go ahead and finish levaquin to 10/23/17. Currently WBC is not suggestive infection at 2.7 and Uc&S suggestive more of contamination. 4. Hypoalbuminemia: Albumin 2.5 on 10/13/17. We will continue to observe and try improve nutrition as patient is certainly stressed by the extensive left thigh surgery. Rehabilitation team rounds: Patient making very good progress in all aspects except for donning and doffing her brace. However she and her are able to perform this. Patient still needs to improve bed mobility and going from supine to sitting. We anticipate discharge on 10/26/17. Please see attached therapy notes below. TIME SPENT: Chart Review, examination and documentation require greater than 25 minutes. Unit#: [id number] Room/Bed: M4149/01 User: Tri MacdonaldAGNES OT Date: 10/18/17 11:46 Type: OT Progress Time In * 07:00 Time Out * 08:30 OT Treatment Time-Minutes * 90 mins Type of Therapy Provided * Individual Precautions * Fall * Hip * WBAT Unit * Acute Inpatient Rehab Pain Comment * Pt indicates soreness in lower back, stating she believes its due to brace, though no redness/irritation noted. RN notified. Subjective * Pt supine upon OT arrival, agreeable to tx. Cognition * Within Normal Limits Supine to Sit * Standby Assist Rolling * Standby Assist Bed Mobility Notes * SBA supine to sit with use of leg special machine operator with increased time. Pt requires 2 short rest breaks due to fatigue with transfer. Rolling bilaterally during ADLs with SBA. Sit to Stand * Standby Assist Stand to Sit * Standby Assist Bed to Chair * Contact Guard Assist Toilet/Commode * Standby Assist Functional Transfer Notes: * Pt completed sit>stand transfers with SBA with use of RW. Ambulation from EOB to commode over toilet, ~20', with SBA/CGA for safety using RW. Toilet transfer with SBA for safety using RW and grab bars. Pt requires assist to unlock brace for knee flexion when sitting and to lock brace for stability in standing. Bathing * Moderate Assist Dressing-Upper Body * Standby Assist Dressing-Lower Body * Moderate Assist Grooming * Independent Toileting * Contact Guard Assist Eating * Independent Meal Preparation/Home Management * Not Tested ADL Training Note * Pt completed bathing while supine in bed. Pt able to wash chest, abdomen, BUE, geronimo area, and B thighs, assist for distal LEs and buttocks. UB dressing- set-up assist only. LB dressing- pt required total assist to cristobal THKAFO brace but was able to roll (I)ly. Pt transferred to EOB and donned skirt with assist over BLE, then able to pull up with CGA in standing. Pt able to don R sock in supine using sock aide. Assist to don sock over brace on LLE once donned. Pt ambulated using RW with CGA ~20' to bathroom to commode over toilet. Pt able to complete clothing management and hygiene with SBA for safety in standing. Pt then returned to w/c and completed grooming at sink independently. A. Eating (include only those with PO intake): * 06.Independent Eating Comments: * See ADL note. B. Oral Hygiene (includes gums in edentulous pts): * 06.Independent Oral Hygiene Comments: * See ADL note. C. Toileting Hygiene (not transfers): * 04.Sup/Touch Assist Toileting Hygiene Comments: * See ADL note. E. Shower/Bathe Self (not transfers, can be sponge bath): * 03.Partial/Mod Assist Shower/Bathe Self Comments: * See ADL note. F. Upper Body Dressing (includes bra, not hospital gown): * 05.Setup/clean up Asst Upper Body Dressing Comments: * See ADL note. G. Lower Body Dressing (includes briefs and knee braces): * 03.Partial/Mod Assist Lower Body Dressing Comments: * See ADL note. H. Putting on/taking off footwear (includes TEDS and AFO): * 02.Substantial/Max Assist Putting on/taking off footwear Comments: * See ADL note. Sit-Static * G Sit-Dynamic * G Stand-Static * F+ Stand-Dynamic * F+ Balance Training Note * sitting in w/c, standing with RW. ambulation with RW today OT Intervention Note * See ADL note above. Pt left in w/c with call light in reach. Lt w/c leg slight elevated. Discharge Recommendations * Home w/services Safe for discharge at this time * No Patient: Kathleen Antunez : 1955 Age/Sex: 62/F Unit#: [id number] Room/Bed: [place] [address] User: Aniyah Gmaboa PT PT Date: 10/18/17 16:24 Type: PT Progress Note Time In * 09:15 Time Out * 10:15 PT Treatment Time-Minutes * 60 mins Type of Therapy Provided * Individual Precautions * Fall * Hip * WBAT Unit * Acute Inpatient Rehab Pain Start of Session * 0 Pain End of Session * 2 Pain Comment * Patient reports soreness in the Rt side of her low back. Nursing notified. Subjective * Pt was in good spirits and con't to be willing to work with therapy. She is motivated to work toward increased independence. She presents seated in the bathroom upon arrival. Cognition * Within Normal Limits Supine to Sit * Not Tested Sit to Supine * Not Tested Rolling * Not Tested Bed Mobility Notes * OOB throughout session. Sit to Stand * Standby Assist Stand to Sit * Standby Assist Bed to Chair * Not Tested Chair to Bed * Not Tested Toilet/Commode * Standby Assist Transfer Training Notes * SBA with sit to stand transfers this date. Patient demonstrates appropriate hand placement on walker with transfers. Patient places Lt foot out in front with sit to stand transfers, performing 75% of work with Rt LE. Sit-Static * G Sit-Dynamic * G Stand-Static * F+ Stand-Dynamic * F+ Balance Training Note * Sitting balance assessed sitting at edge of mat table, standing balance assessed standing at RW. Ambulation Distance * 62 Feet Ambulation Level of Assist * Standby Assist Assistive Device Used * Rolling Walker * Splint/Brace * Gait Belt Other Assistive Device Used * THKAFO (must be donned for all ambulation) Weight BearingStatus * WBAT Left Able to Maintain Weight Bearing Status * Yes Gait Training Note * Patient ambulated this date with RW. Patient focusing on improving Lt LE advancement without use of Lt hand for advancement. Patient demonstrates decreased stride length and decreased abraham with ambulation. Wheelchair Distance * 500 feet Wheelchair Mobility Level of Assist * Standby Assist Wheelchair Mobility Comment * Patient demonstrates w/c mobility 500 with SBA. Pt was able to complete mobility up ramp using technique tought previous time ascending ramp backward. Stair Training Note * Has ramp to enter home and first floor set up. A. Roll Left and Right: * 88.Not Attempted Roll Left and Right Comments: * OOB throughout B. Sit to Lying: * 88.Not Attempted C. Lying to Sitting on Side of Bed: * 88.Not Attempted D. Sit to Stand: * 05.Setup/clean up Asst Sit to Stand Comments: * for safety E. Chair/Npr-lb-Hiton Transfer: * 05.Setup/clean up Asst Chair/Kma-nl-Enoyo Transfer Comments: * for safety F. Toilet Transfer: * 05.Setup/clean up Asst Toilet Transfer Comments: * for safety only G. Car Transfer: * 88.Not Attempted H. Does the patient walk?: * 2. Yes I. Walk 10 Feet: * 05.Setup/clean up Asst J. Walk 50' with Two Turns: * 05.Setup/clean up Asst K. Walk 150 Feet: * 88.Not Attempted L. Walking 10' on uneven surfaces: * 88.Not Attempted M. 1 Step (curb): * 88.Not Attempted N. 4 Steps (with or without railing): * 88.Not Attempted O. 12 Steps (with or without railing): * 88.Not Attempted P. Picking up Object from the Floor (from a standing): * 88.Not Attempted Q. Does the patient use a w/c (other than just transport): * 1. Yes R. Wheel 50' with 2 Turns(seated in w/c): * 05.Setup/clean up Asst RR. What type of w/c?: * 1. Manual S. Wheel 150' (seated in w/c): * 05.Setup/clean up Asst SS. What type of w/c?: * 1. Manual Lower Extremity Exercised * Bilateral Therapeutic Exercises Note * focus on mobility and amblation during session today PT Interventions * Gait Training * Therapeutic Excercise * Functional Training * Bed Mobility * Balance Activities * Safety/Precautions * Pt./Family Education PT Progress Note * Patient demonstrates improved mobility. Patient continues to have Rt sided LBP, will plan to try MT during next session. Patient demonstrates all activity with no immediate adverse effects. Patient was seated in wheelchair at bedside with call will and personal belongings within reach following PT session. PT Goal Note * OOB for meals. ambulation into bathroom during daytime hours. brace not to be slept in to allow the skin to breath at this time. Spend around 15 minute periods in knee flexion t/o OOB hours. Discharge Recommendations * Home w/services Safe for discharge at this time * No Allergies Coded Allergies: No Known Allergies (Unverified , 10/12/17) Vital Signs Vital Signs Date Time Temp Pulse Resp B/P (MAP) Pulse Ox O2 Delivery O2 Flow Rate FiO2 10/18/17 14:00 98.0 97 18 122/57 (78) 98 Room Air Laboratory Data CBC/BMP Laboratory Tests 10/18/17 06:25 Red Blood Count 2.94 L, Mean Corpuscular Volume 94.6, Mean Corpuscular Hemoglobin 29.3, Mean Corpuscular Hemoglobin Concent 30.9 L, Red Cell Distribution Width 15.9 H, Calcium Level 8.4 L Labs 24H Laboratory Tests 2 10/18/17 06:25: Nucleated Red Blood Cells % (auto) 0.0, Anion Gap 6L, Glomerular Filtration Rate > 60.0, Blood Urea Nitrogen 10, Creatinine 0.52L, Sodium Level 141, Potassium Level 4.0, Chloride Level 105, Carbon Dioxide Level 30, Calcium Level 8.4L 10/18/17 15:17: Differential Slide Review Report, Differential Pathologist's Review COMPREHENSIVE REVIEW, Peripheral Blood Smear Path Consult PERIPHERAL SMEAR Microbiology Microbiology 10/14/17 Stool Occult Blood (GONZALEZ) - Final, Complete 10/14/17 Stool Occult Blood (GONZALEZ) - Final, Complete 10/13/17 Stool Occult Blood (GONZALEZ) - Final, Complete 10/13/17 Gastrointestinal Tract Panel (PCR) - Final, Complete 10/13/17 Urine Culture - Final, Complete Escherichia Coli 10/13/17 Urine Culture - Final, Complete Escherichia Coli Pseudomonas Aeruginosa Enterococcus Faecalis Current Medications Current Medications Current Medications Acetaminophen (Tylenol Tab) 500 mg Q6HP PRN PO PAIN OR FEVER Last administered on 10/18/17 08:48; Start 10/12/17 at 12:30; Stop 11/11/17 at 12:29 Aspirin (Aspirin) 325 mg DAILY PO Last administered on 10/18/17 08:47; Start 10/12/17 at 09:00; Stop 11/11/17 at 08:59 Azithromycin (Zithromax Tab) 250 mg DAILY PO Last administered on 10/17/17 08 :32; Start 10/14/17 at 09:00; Stop 10/17/17 at 12:41; Status DC Bisacodyl (Dulcolax Tab) 5 mg DAILYPRN PRN PO CONSTIPATION; Start 10/12/17 at 12:30; Stop 11/11/17 at 12:29 Cephalexin Monohydrate (Keflex) 500 mg Q8H PO Last administered on 10/18/17 05:44; Start 10/12/17 at 14:00; Stop 10/22/17 at 13:59 Cetirizine HCl (ZyrTEC) 10 mg DAILY PO ; Start 10/12/17 at 09:00; Stop at 09:57; Status DC Duloxetine HCl (Cymbalta) 90 mg DAILY PO Last administered on 10/18/17 08:47 ; Start 10/12/17 at 09:00; Stop 11/11/17 at 08:59 Enoxaparin Sodium (Lovenox) 40 mg DAILY SC Last administered on 10/18/17 08: 47; Start 10/15/17 at 09:00; Stop 10/18/17 at 15:03; Status DC Home Med (Med Rec Complete!) ASDIRECTED XX ; Start 10/12/17 at 15:30; Stop at 15:30; Status DC Lactobacillus Acidophilus (Bacid) 1 ea BID PO Last administered on 10/18/17 08:47; Start 10/14/17 at 09:00; Stop 11/13/17 at 08:59 Levofloxacin (Levaquin) 500 mg DAILY@06 PO Last administered on 10/18/17 05: 44; Start 10/17/17 at 06:00; Stop 10/23/17 at 06:01 Levothyroxine Sodium (Synthroid) 100 mcg DAILY@06 PO Last administered on 10/18 05:44; Start 10/12/17 at 06:00; Stop 11/11/17 at 05:59 Magnesium Hydroxide (Milk Of Magnesia) 30 ml DAILYPRN PRN PO CONSTIPATION; Start 10/12/17 at 12:30; Stop 11/11/17 at 12:29 Nystatin (Mycostatin Powder, Nystop) Buttocks/ perianal/ groin ... BID TOP Last administered on 10/18/17 08:48; Start 10/13/17 at 09:00; Stop 11/12/17 at 08:59 Omeprazole (PriLOSEC) 20 mg DAILY PO Last administered on 10/18/17 08:48; Start 10/12/17 at 09:00; Stop 11/11/17 at 08:59 Oxycodone HCl (Roxicodone, Oxyir) 5 mg Q4HP PRN PO PAIN SCALE 6-10; Start at 12:30; Stop 10/25/17 at 23:55 Pregabalin (Lyrica) 200 mg BID PO Last administered on 10/18/17 08:48; Start 10/12/17 at 21:00; Stop 10/25/17 at 23:55 Ramelteon (Rozerem) 8 mg QHS PRN PO SLEEP Last administered on 10/17/17 21:41 ; Start 10/15/17 at 21:45; Stop 11/14/17 at 21:44 Ropinirole HCl (Requip) 1.5 mg QHS PO Last administered on 10/17/17 21:13; Start 10/12/17 at 21:00; Stop 11/11/17 at 20:59 Trazodone HCl (Desyrel) 200 mg QHS PO Last administered on 10/17/17 21:13; Start 10/12/17 at 21:00; Stop 11/11/17 at 20:59 JESSICA CLAUDIO MD Oct 18, 2017 18:06
[2017-10-18 20:00] VITALS: BP 122/64
[2017-10-18] MEDS: traZODone 100 MG TAB PO SCH (21:03)
[2017-10-18] MEDS: rOPINIRole 1MG TAB PO SCH (21:04)
[2017-10-18] MEDS: RAMELTEON 8 MG TAB (ROZEREM) PO PRN (21:57)
[2017-10-19] MEDS: ACETAMINOPHEN 500 MG TAB PO PRN ×4 (00:22→23:04)
[2017-10-19 06:00] VITALS: BP 142/75
[2017-10-19] MEDS: LEVOTHYROXINE 100MCG TABLET (0.1MG) PO SCH (06:08)
[2017-10-19] MEDS: LevoFLOXacin 500 MG TABLET PO SCH (06:08)
[2017-10-19] MEDS: CEPHALEXIN 500 MG CAP PO SCH ×3 (06:08→20:59)
[2017-10-19 07:02] LABS: MEAN CORPUSCULAR HEMOGLOBIN 29.7 pg (27.0-33.0); MEAN CORPUSCULAR VOLUME 92.7 fl (80.0-96.0); PLATELET COUNT, AUTOMATED 124 10^3/uL (150-450); RED CELL DISTRIBUTION WIDTH 16.2 % (11.5-14.5); WHITE BLOOD COUNT 2.9 10^3/uL (4.0-10.0)
[2017-10-19] MEDS: ASPIRIN 325 MG TAB PO SCH (07:34)
[2017-10-19] MEDS: PREGABALIN 100 MG CAP (LYRICA) PO SCH ×2 (07:34→20:56)
[2017-10-19] MEDS: NYSTATIN 100,000 UNITS/GM TOPICAL PWD 15 GM TOP SCH ×2 (07:35→21:00)
[2017-10-19] MEDS: LACTOBACILLUS ACIDOPHILUS CAP (BACID) PO SCH ×2 (07:35→20:56)
[2017-10-19] MEDS: DULoxetine 30 MG CAP (CYMBALTA) PO SCH (07:35)
[2017-10-19] MEDS: OMEPRAZOLE 20 MG CAP PO SCH (07:35)
[2017-10-19 14:00] VITALS: BP 119/63
--- NOTE | 2017-10-19 14:52 | IPNPDOC ---
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 The patient has expressed great willingness to participate in acute intensive rehabilitation. The patient is right-handed dominant and this has not been affected by her tumor or surgery. She is to use the THKAFO when out of bed. She has left foot drop and some sensory deficits. Pain is fairly well controlled. No complaints today and patient very motivated for therapies. ALLERGIES: See Below MEDICATIONS: Reviewed, see below. OBJECTIVE: VITAL SIGNS: Please see below. PHYSICAL EXAMINATION: GENERAL: Morbidly obese middle-aged white female in mild musculoskeletal distress standing with her hip adduction/AFO brace on. Patient alert and well oriented. HEENT: Normocephalic/atraumatic. CARDIOVASCULAR: Regular rate and rhythm with normal S1 and S2. 2/4 bilateral radial pulses. LUNGS: All rodriguez clear to auscultation. ABDOMEN: Obese with healing umbilical incision and normal bowel sounds in all quadrants. NEUROLOGICAL: Patient alert and oriented 4. Speech is clear coherent and appropriate. Affect is pleasant cooperative. Memory is intact. Bilateral upper extremity are sensory motor intact. Right lower extremity is sensory motor intact. Decreased sensation and foot drop in the left lower extremity in the sciatic innervated areas. SKIN: Rash on buttocks and perianal area appears to be fungal and improved with Left lateral thigh incision healed across without any openings or drainage and blister below the patella about to slough it's top. LABORATORY DATA: Reviewed. Please see below. MICROBIOLOGY: Please see below. IMAGING: No new imaging. DVT prophylaxis ordered?: Aspirin and JO ANN Hose. ASSESSMENT AND PLAN: 1. Rehabilitation of left CANDACE femur replacement and TKA secondary to radical resection of femur for chondrosarcoma: Patient very motivated and happy to participate in therapy. She is a bit decondition but without complaints. Patient progressing well in PT/OT thought limited by THAFO donning and doffing as well as LLE weakness. Patient making very good progress in all aspects except for donning and doffing her brace. However she and her are able to perform this. Patient still needs to improve bed mobility and going from supine to sitting. After discharge patient will be requiring further evaluation and care by orthopedics and by oncology as in her discharge plan. We anticipate discharge on 10/26/17. 2. Anemia: H&H is 9.0 and 28.1% today on 10/19/17 which is stable. Mild pancytopenia on peripheral smear. We will continue to watch this as patient had been previously severely anemic. 3. Urinary tract infection: UA is highly consistent with a UTI though urine PARK MAINTAINER is likely be negative in light of patient being on Keflex. However I will go ahead and finish levaquin to 10/23/17. Currently WBC is not suggestive infection at 2.7 and Uc&S suggestive more of contamination. 4. Hypoalbuminemia: Albumin 2.5 on 10/13/17. We will continue to observe and try improve nutrition as patient is certainly stressed by the extensive left thigh surgery. TIME SPENT: Chart Review, examination and documentation require greater than 25 minutes. Allergies Coded Allergies: No Known Allergies (Unverified , 10/12/17) Vital Signs Vital Signs Date Time Temp Pulse Resp B/P (MAP) Pulse Ox O2 Delivery O2 Flow Rate FiO2 10/19/17 06:00 98.5 95 18 142/75 (97) 96 Room Air Laboratory Data CBC/BMP Laboratory Tests 10/19/17 06:38 Red Blood Count 3.03 L, Mean Corpuscular Volume 92.7, Mean Corpuscular Hemoglobin 29.7, Mean Corpuscular Hemoglobin Concent 32.0, Red Cell Distribution Width 16.2 H Labs 24H Laboratory Tests 2 10/18/17 15:17: Differential Slide Review Report, Differential Pathologist's Review COMPREHENSIVE REVIEW, Peripheral Blood Smear Path Consult PERIPHERAL SMEAR 10/19/17 06:38: Nucleated Red Blood Cells % (auto) 0.0 Microbiology Microbiology 10/14/17 Stool Occult Blood (GONZALEZ) - Final, Complete 10/14/17 Stool Occult Blood (GONZALEZ) - Final, Complete 10/13/17 Stool Occult Blood (GONZALEZ) - Final, Complete 10/13/17 Gastrointestinal Tract Panel (PCR) - Final, Complete 10/13/17 Urine Culture - Final, Complete Escherichia Coli 10/13/17 Urine Culture - Final, Complete Escherichia Coli Pseudomonas Aeruginosa Enterococcus Faecalis Current Medications Current Medications Current Medications Acetaminophen (Tylenol Tab) 500 mg Q6HP PRN PO PAIN OR FEVER Last administered on 10/19/17 13:07; Start 10/12/17 at 12:30; Stop 11/11/17 at 12:29 Aspirin (Aspirin) 325 mg DAILY PO Last administered on 10/19/17 07:34; Start 10/12/17 at 09:00; Stop 11/11/17 at 08:59 Azithromycin (Zithromax Tab) 250 mg DAILY PO Last administered on 10/17/17 08 :32; Start 10/14/17 at 09:00; Stop 10/17/17 at 12:41; Status DC Bisacodyl (Dulcolax Tab) 5 mg DAILYPRN PRN PO CONSTIPATION; Start 10/12/17 at 12:30; Stop 11/11/17 at 12:29 Cephalexin Monohydrate (Keflex) 500 mg Q8H PO Last administered on 10/19/17 13:07; Start 10/12/17 at 14:00; Stop 10/22/17 at 13:59 Cetirizine HCl (ZyrTEC) 10 mg DAILY PO ; Start 10/12/17 at 09:00; Stop at 09:57; Status DC Duloxetine HCl (Cymbalta) 90 mg DAILY PO Last administered on 10/19/17 07:35 ; Start 10/12/17 at 09:00; Stop 11/11/17 at 08:59 Enoxaparin Sodium (Lovenox) 40 mg DAILY SC Last administered on 10/18/17 08: 47; Start 10/15/17 at 09:00; Stop 10/18/17 at 15:03; Status DC Home Med (Med Rec Complete!) ASDIRECTED XX ; Start 10/12/17 at 15:30; Stop at 15:30; Status DC Lactobacillus Acidophilus (Bacid) 1 ea BID PO Last administered on 10/19/17 07:35; Start 10/14/17 at 09:00; Stop 11/13/17 at 08:59 Levofloxacin (Levaquin) 500 mg DAILY@06 PO Last administered on 10/19/17 06: 08; Start 10/17/17 at 06:00; Stop 10/23/17 at 06:01 Levothyroxine Sodium (Synthroid) 100 mcg DAILY@06 PO Last administered on 10/19 06:08; Start 10/12/17 at 06:00; Stop 11/11/17 at 05:59 Magnesium Hydroxide (Milk Of Magnesia) 30 ml DAILYPRN PRN PO CONSTIPATION; Start 10/12/17 at 12:30; Stop 11/11/17 at 12:29 Nystatin (Mycostatin Powder, Nystop) Buttocks/ perianal/ groin ... BID TOP Last administered on 10/19/17 07:35; Start 10/13/17 at 09:00; Stop 11/12/17 at 08:59 Omeprazole (PriLOSEC) 20 mg DAILY PO Last administered on 10/19/17 07:35; Start 10/12/17 at 09:00; Stop 11/11/17 at 08:59 Oxycodone HCl (Roxicodone, Oxyir) 5 mg Q4HP PRN PO PAIN SCALE 6-10; Start at 12:30; Stop 10/25/17 at 23:55 Pregabalin (Lyrica) 200 mg BID PO Last administered on 10/19/17 07:34; Start 10/12/17 at 21:00; Stop 10/25/17 at 23:55 Ramelteon (Rozerem) 8 mg QHS PRN PO SLEEP Last administered on 10/18/17 21:57 ; Start 10/15/17 at 21:45; Stop 11/14/17 at 21:44 Ropinirole HCl (Requip) 1.5 mg QHS PO Last administered on 10/18/17 21:04; Start 10/12/17 at 21:00; Stop 11/11/17 at 20:59 Trazodone HCl (Desyrel) 200 mg QHS PO Last administered on 10/18/17 21:03; Start 10/12/17 at 21:00; Stop 11/11/17 at 20:59 JESSICA CLAUDIO MD Oct 19, 2017 14:52
[2017-10-19 20:00] VITALS: BP 131/67
[2017-10-19] MEDS: traZODone 100 MG TAB PO SCH (20:57)
[2017-10-19] MEDS: rOPINIRole 1MG TAB PO SCH (20:59)
[2017-10-19] MEDS: RAMELTEON 8 MG TAB (ROZEREM) PO PRN (21:13)
[2017-10-20 06:00] VITALS: BP 138/69
[2017-10-20] MEDS: LevoFLOXacin 500 MG TABLET PO SCH (07:05)
[2017-10-20] MEDS: CEPHALEXIN 500 MG CAP PO SCH ×3 (07:05→21:31)
[2017-10-20] MEDS: LEVOTHYROXINE 100MCG TABLET (0.1MG) PO SCH (07:05)
[2017-10-20 07:47] LABS: MEAN CORPUSCULAR HEMOGLOBIN 29.1 pg (27.0-33.0); MEAN CORPUSCULAR HGB CONC 31.2 g/dl (32.0-36.5); MEAN CORPUSCULAR VOLUME 93.4 fl (80.0-96.0); PLATELET COUNT, AUTOMATED 136 10^3/uL (150-450); RED CELL DISTRIBUTION WIDTH 15.9 % (11.5-14.5); WHITE BLOOD COUNT 3.2 10^3/uL (4.0-10.0)
[2017-10-20] MEDS: PREGABALIN 100 MG CAP (LYRICA) PO SCH ×2 (08:09→21:31)
[2017-10-20] MEDS: OMEPRAZOLE 20 MG CAP PO SCH (08:09)
[2017-10-20] MEDS: NYSTATIN 100,000 UNITS/GM TOPICAL PWD 15 GM TOP SCH ×2 (08:10→21:34)
[2017-10-20] MEDS: DULoxetine 30 MG CAP (CYMBALTA) PO SCH (08:10)
[2017-10-20] MEDS: ACETAMINOPHEN 500 MG TAB PO PRN ×3 (08:10→21:34)
[2017-10-20] MEDS: ASPIRIN 325 MG TAB PO SCH (08:10)
[2017-10-20] MEDS: LACTOBACILLUS ACIDOPHILUS CAP (BACID) PO SCH ×2 (08:10→21:31)
[2017-10-20 14:00] VITALS: BP 148/68
[2017-10-20 20:00] VITALS: BP 128/64
[2017-10-20] MEDS: RAMELTEON 8 MG TAB (ROZEREM) PO PRN (21:31)
[2017-10-20] MEDS: rOPINIRole 1MG TAB PO SCH (21:32)
[2017-10-20] MEDS: traZODone 100 MG TAB PO SCH (21:33)
[2017-10-21] MEDS: LevoFLOXacin 500 MG TABLET PO SCH (05:51)
[2017-10-21] MEDS: CEPHALEXIN 500 MG CAP PO SCH ×3 (05:51→21:59)
[2017-10-21] MEDS: LEVOTHYROXINE 100MCG TABLET (0.1MG) PO SCH (05:51)
[2017-10-21 06:00] VITALS: BP 113/57
[2017-10-21 06:44] LABS: MEAN CORPUSCULAR HEMOGLOBIN 29.5 pg (27.0-33.0); MEAN CORPUSCULAR HGB CONC 31.6 g/dl (32.0-36.5); MEAN CORPUSCULAR VOLUME 93.1 fl (80.0-96.0); PLATELET COUNT, AUTOMATED 135 10^3/uL (150-450); RED CELL DISTRIBUTION WIDTH 15.9 % (11.5-14.5); WHITE BLOOD COUNT 3.1 10^3/uL (4.0-10.0)
[2017-10-21] MEDS: DULoxetine 30 MG CAP (CYMBALTA) PO SCH (09:21)
[2017-10-21] MEDS: ACETAMINOPHEN 500 MG TAB PO PRN ×2 (09:21→22:07)
[2017-10-21] MEDS: ASPIRIN 325 MG TAB PO SCH (09:21)
[2017-10-21] MEDS: NYSTATIN 100,000 UNITS/GM TOPICAL PWD 15 GM TOP SCH ×2 (09:21→22:00)
[2017-10-21] MEDS: PREGABALIN 100 MG CAP (LYRICA) PO SCH ×2 (09:21→21:59)
[2017-10-21] MEDS: LACTOBACILLUS ACIDOPHILUS CAP (BACID) PO SCH ×2 (09:21→21:59)
[2017-10-21] MEDS: OMEPRAZOLE 20 MG CAP PO SCH (09:21)
[2017-10-21 14:00] VITALS: BP 119/67
--- NOTE | 2017-10-21 15:40 | IPNPDOC ---
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 The patient has expressed great willingness to participate in acute intensive rehabilitation. The patient is right-handed dominant and this has not been affected by her tumor or surgery. She is to use the THKAFO when out of bed. She has left foot drop and some sensory deficits. Pain is fairly well controlled. No complaints today and patient very motivated for therapies and increasing skill levels in everything but donning the abduction brace. ALLERGIES: See Below MEDICATIONS: Reviewed, see below. OBJECTIVE: VITAL SIGNS: Please see below. PHYSICAL EXAMINATION: GENERAL: Morbidly obese middle-aged white female in mild musculoskeletal distress standing with her hip adduction/AFO brace on. Patient alert and well oriented. HEENT: Normocephalic/atraumatic. CARDIOVASCULAR: Regular rate and rhythm with normal S1 and S2. 2/4 bilateral radial pulses. LUNGS: All rodriguez clear to auscultation. ABDOMEN: Obese with healing umbilical incision and normal bowel sounds in all quadrants. NEUROLOGICAL: Patient alert and oriented 4. Speech is clear coherent and appropriate. Affect is pleasant cooperative. Memory is intact. Bilateral upper extremity are sensory motor intact. Right lower extremity is sensory motor intact. Decreased sensation and foot drop in the left lower extremity in the sciatic innervated areas. SKIN: Rash on buttocks and perianal area appears to be fungal and improved with Left lateral thigh incision healed across without any openings or drainage and blister below the patella about to slough it's top. LABORATORY DATA: Reviewed. Please see below. MICROBIOLOGY: Please see below. IMAGING: No new imaging. DVT prophylaxis ordered?: Aspirin and JO ANN Hose. ASSESSMENT AND PLAN: 1. Rehabilitation of left CANDACE femur replacement and TKA secondary to radical resection of femur for chondrosarcoma: Patient very motivated and happy to participate in therapy. She is a bit decondition but without complaints. Patient progressing well in PT/OT thought limited by THAFO donning and doffing as well as LLE weakness. Patient making very good progress in all aspects except for donning and doffing her brace. However she and her are able to perform this. Patient still needs to improve bed mobility and going from supine to sitting. After discharge patient will be requiring further evaluation and care by orthopedics and by oncology as in her discharge plan. REHAB. TEAM ROUNDS: Patient near discharge goals in all areas now, except critical donning of the THKAFO. We will work more with her and her and look to get appropriate DME such as Bariatric (W/C, Commode, Trapeze, Shower Chair, and probable FWW). We anticipate discharge on 10/26/17. Please see attached therapy notes below. 2. Anemia: H&H is 9.4 and 29.3% today on 10/21/17 which is improved. Mild pancytopenia on peripheral smear. We will continue to watch this as patient had been previously severely anemic. 3. 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 However I will go ahead and finish Levaquin to 10/23/17. Currently WBC is not suggestive infection at 3.1 and Uc&s suggestive more of contamination. 4. Hypoalbuminemia: Albumin 2.5 on 10/13/17. We will continue to observe and try improve nutrition as patient is certainly stressed by the extensive left thigh surgery. TIME SPENT: Chart Review, examination and documentation require greater than 25 minutes. Patient: Kathleen Antunez : 1955 Age/Sex: 62/F Unit#: [id number] Room/Bed: M4149/01 User: Tri Macdonald OT OT Date: 10/21/17 08:39 Type: OT Progress Time In * 07:00 Time Out * 08:30 OT Treatment Time-Minutes * 90 mins Type of Therapy Provided * Individual Precautions * Fall * Hip * WBAT * Other Unit * Acute Inpatient Rehab Pain Start of Session * 2 Pain End of Session * 2 Pain Comment * Patient reports 2/10 pain in back/left flank area. RN notified. Subjective * Pt sitting in w/c upon OT arrival, agreeable to tx. Cognition * Within Normal Limits Bed Mobility Notes * OOB throughout tx. Sit to Stand * Standby Assist Stand to Sit * Standby Assist Toilet/Commode * Standby Assist Functional Transfer Notes: * SBA all functional sit<>stand transfers. SBA for short ambulation from w/c to toilet, ~8' using RW. Bathing * Standby Assist Dressing-Upper Body * Standby Assist Dressing-Lower Body * Standby Assist Grooming * Independent Toileting * Standby Assist Eating * Modified Independent ADL Training Note * Pt edu re: toilet aide for increased independence with toileting. Pt completed toileting with SBA only for safety. Pt then transferred to w/c and completed sponge bathing while seated at sink. Pt able to wash/dry all parts this date, including buttocks without AE. Pt encouraged to complete hygiene following BM the same way she completed bathing. UB dressing- set-up assist only. LB dressing- pt able to thread BLE into underwear and pants, as well as don R sock, using AE. SBA only to stand to pull up garments. Pt does require assist for donning THKAFO, though already donned this date. Grooming completed independently at sink. A. Eating (include only those with PO intake): * 06.Independent Eating Comments: * See ADL note. Independent with dentures. B. Oral Hygiene (includes gums in edentulous pts): * 06.Independent Oral Hygiene Comments: * See ADL note. C. Toileting Hygiene (not transfers): * 05.Setup/clean up Asst Toileting Hygiene Comments: * See ADL note. E. Shower/Bathe Self (not transfers, can be sponge bath): * 05.Setup/clean up Asst Shower/Bathe Self Comments: * See ADL note. F. Upper Body Dressing (includes bra, not hospital gown): * 05.Setup/clean up Asst Upper Body Dressing Comments: * See ADL note. G. Lower Body Dressing (includes briefs and knee braces): * 05.Setup/clean up Asst Lower Body Dressing Comments: * See ADL note. H. Putting on/taking off footwear (includes TEDS and AFO): * 03.Partial/Mod Assist Putting on/taking off footwear Comments: * See ADL note. Sit-Static * G Sit-Dynamic * G Stand-Static * G- Stand-Dynamic * G- Balance Training Note * Sitting balance assessed sitting in w/c, standing balance with RW. No LOB throughout. OT Intervention Note * Following ADL, pt self propelled w/c ~250' mod I to increase strength and endurance for ADL routines. Pt returned to room and remained seated in w/c with all needs met, call light in reach, awaiting breakfast. Discharge Recommendations * Home w/services Safe for discharge at this time * No Patient: Kathleen Antunez : 1955 Age/Sex: 62/F Unit#: [id number] Room/Bed: M4149/01 User: Tri Jimenez, PT Therapist PT Date: 11/23/17 12:46 Type: PT Progress Note Time In * 12:08 Time Out * 12:30 PT Treatment Time-Minutes * 22 mins Type of Therapy Provided * Individual Precautions * Fall * Hip * WBAT * Other Unit * Acute Inpatient Rehab Pain Start of Session * 2 Pain End of Session * 2 Pain Comment * Patient reports 2/10 pain in LLE, states "it is feeling better." Subjective * Patient sitting up in w/c upon PT arrival. Agreeable to PT treatment. Cognition * Within Normal Limits Supine to Sit * Not Tested Sit to Supine * Not Tested Rolling * Not Tested Bed Mobility Notes * Patient OOB throughout treatment. Patient is declining to return to bed at end of treatment. Sit to Stand * Standby Assist Stand to Sit * Standby Assist Bed to Chair * Not Tested Chair to Bed * Not Tested Toilet/Commode * Not Tested Transfer Training Notes * Patient requires SBA for sit <> stand from w/c. She demonstrates good safety awareness for locking brakes of w/c prior to attempting transfer and directs therapist to assist with locking brace in standing. Sit-Static * G Sit-Dynamic * G Stand-Static * G- Stand-Dynamic * G- Balance Training Note * Sitting balance assessed sitting in w/c, standing balance with RW. No LOB throughout. Ambulation Distance * 58 Feet Ambulation Level of Assist * Standby Assist Assistive Device Used * Rolling Walker * Splint/Brace * Gait Belt Other Assistive Device Used * THKAFO (must be donned for all ambulation) Weight BearingStatus * WBAT Left Able to Maintain Weight Bearing Status * Yes Gait Training Note * Gait x 58' with SBA, pt advances her L LE with no UE assist approx for all ambulation this afternoon. She advances L LE first and then performs step to gait pattern. Increased weight bearing through BUEs. Limited by fatigue. Wheelchair Distance * 260 feet Wheelchair Mobility Level of Assist * Standby Assist Wheelchair Mobility Comment * Pt propels W/C with bilateral UEs. Patient able to propel w/c and perform turns without physical assist. Stair Training Note * Has ramp to enter home and first floor set up. Roll Left and Right Comments: * OOB throughout D. Sit to Stand: * 04.Sup/Touch Assist Sit to Stand Comments: * for safety E. Chair/Wfl-rz-Ceosp Transfer: * 05.Setup/clean up Asst F. Toilet Transfer: * 88.Not Attempted G. Car Transfer: * 88.Not Attempted H. Does the patient walk?: * 2. Yes I. Walk 10 Feet: * 05.Setup/clean up Asst Walk 10 Feet Comments: * 58' this date, see gait notes J. Walk 50' with Two Turns: * 88.Not Attempted Walk 50' with Two Turns Comments: * Patient able to ambulate 50' without turns K. Walk 150 Feet: * 88.Not Attempted L. Walking 10' on uneven surfaces: * 88.Not Attempted M. 1 Step (curb): * 88.Not Attempted N. 4 Steps (with or without railing): * 88.Not Attempted O. 12 Steps (with or without railing): * 88.Not Attempted P. Picking up Object from the Floor (from a standing): * 88.Not Attempted Q. Does the patient use a w/c (other than just transport): * 1. Yes R. Wheel 50' with 2 Turns(seated in w/c): * 05.Setup/clean up Asst RR. What type of w/c?: * 1. Manual S. Wheel 150' (seated in w/c): * 05.Setup/clean up Asst SS. What type of w/c?: * 1. Manual Standing Exercises * Hip Flexion Therapeutic Exercises Note * focus on mobility and ambulation during afternoon session today PT Interventions * Gait Training * Wheelchair Mobility * Functional Training * Balance Activities * Safety/Precautions * Pt./Family Education PT Progress Note * Patient demonstrates ability to perform transfers, ambulation, and w/c mobility at a supervision level. Able to ambulate 58' with RW and correct sequencing. Patient able to perform turns and navigate obstacles without assist. Patient was left sitting in w/c, all needs within reach, and RN aware. PT Goal Expiration Date * Oct 20, 2017 PT Goal Note * OOB for meals. ambulation into bathroom during daytime hours. brace not to be slept in to allow the skin to breath at this time. Spend around 15 minute periods in knee flexion t/o OOB hours. Discharge Recommendations * Home w/services Allergies Coded Allergies: No Known Allergies (Unverified , 10/12/17) Vital Signs Vital Signs Date Time Temp Pulse Resp B/P (MAP) Pulse Ox O2 Delivery O2 Flow Rate FiO2 10/21/17 14:00 97.7 95 18 119/67 (84) 95 Room Air Laboratory Data CBC/BMP Laboratory Tests 10/21/17 06:31 Red Blood Count 3.19 L, Mean Corpuscular Volume 93.1, Mean Corpuscular Hemoglobin 29.5, Mean Corpuscular Hemoglobin Concent 31.6 L, Red Cell Distribution Width 15.9 H Labs 24H Laboratory Tests 2 10/21/17 06:31: Nucleated Red Blood Cells % (auto) 0.0 Microbiology Microbiology 10/14/17 Stool Occult Blood (GONZALEZ) - Final, Complete 10/14/17 Stool Occult Blood (GONZALEZ) - Final, Complete 10/13/17 Stool Occult Blood (GONZALEZ) - Final, Complete 10/13/17 Gastrointestinal Tract Panel (PCR) - Final, Complete 10/13/17 Urine Culture - Final, Complete Escherichia Coli 10/13/17 Urine Culture - Final, Complete Escherichia Coli Pseudomonas Aeruginosa Enterococcus Faecalis Current Medications Current Medications Current Medications Acetaminophen (Tylenol Tab) 500 mg Q6HP PRN PO PAIN OR FEVER Last administered on 10/21/17 09:21; Start 10/12/17 at 12:30; Stop 11/11/17 at 12:29 Aspirin (Aspirin) 325 mg DAILY PO Last administered on 10/21/17 09:21; Start 10/12/17 at 09:00; Stop 11/11/17 at 08:59 Azithromycin (Zithromax Tab) 250 mg DAILY PO Last administered on 10/17/17 08 :32; Start 10/14/17 at 09:00; Stop 10/17/17 at 12:41; Status DC Bisacodyl (Dulcolax Tab) 5 mg DAILYPRN PRN PO CONSTIPATION; Start 10/12/17 at 12:30; Stop 11/11/17 at 12:29 Cephalexin Monohydrate (Keflex) 500 mg Q8H PO Last administered on 10/21/17 15:15; Start 10/12/17 at 14:00; Stop 10/22/17 at 13:59 Cetirizine HCl (ZyrTEC) 10 mg DAILY PO ; Start 10/12/17 at 09:00; Stop at 09:57; Status DC Duloxetine HCl (Cymbalta) 90 mg DAILY PO Last administered on 10/21/17 09:21 ; Start 10/12/17 at 09:00; Stop 11/11/17 at 08:59 Enoxaparin Sodium (Lovenox) 40 mg DAILY SC Last administered on 10/18/17 08: 47; Start 10/15/17 at 09:00; Stop 10/18/17 at 15:03; Status DC Home Med (Med Rec Complete!) ASDIRECTED XX ; Start 10/12/17 at 15:30; Stop at 15:30; Status DC Lactobacillus Acidophilus (Bacid) 1 ea BID PO Last administered on 10/21/17 09:21; Start 10/14/17 at 09:00; Stop 11/13/17 at 08:59 Levofloxacin (Levaquin) 500 mg DAILY@06 PO Last administered on 10/21/17 05: 51; Start 10/17/17 at 06:00; Stop 10/23/17 at 06:01 Levothyroxine Sodium (Synthroid) 100 mcg DAILY@06 PO Last administered on 10/21 05:51; Start 10/12/17 at 06:00; Stop 11/11/17 at 05:59 Magnesium Hydroxide (Milk Of Magnesia) 30 ml DAILYPRN PRN PO CONSTIPATION; Start 10/12/17 at 12:30; Stop 11/11/17 at 12:29 Nystatin (Mycostatin Powder, Nystop) Buttocks/ perianal/ groin ... BID TOP Last administered on 10/21/17 09:21; Start 10/13/17 at 09:00; Stop 11/12/17 at 08:59 Omeprazole (PriLOSEC) 20 mg DAILY PO Last administered on 10/21/17 09:21; Start 10/12/17 at 09:00; Stop 11/11/17 at 08:59 Oxycodone HCl (Roxicodone, Oxyir) 5 mg Q4HP PRN PO PAIN SCALE 6-10; Start at 12:30; Stop 10/28/17 at 23:55 Pregabalin (Lyrica) 200 mg BID PO Last administered on 10/21/17 09:21; Start 10/12/17 at 21:00; Stop 10/28/17 at 23:55 Ramelteon (Rozerem) 8 mg QHS PRN PO SLEEP Last administered on 10/20/17 21:31 ; Start 10/15/17 at 21:45; Stop 11/14/17 at 21:44 Ropinirole HCl (Requip) 1.5 mg QHS PO Last administered on 10/20/17 21:32; Start 10/12/17 at 21:00; Stop 11/11/17 at 20:59 Trazodone HCl (Desyrel) 200 mg QHS PO Last administered on 10/20/17 21:33; Start 10/12/17 at 21:00; Stop 11/11/17 at 20:59 JESSICA CLAUDIO MD Oct 21, 2017 15:39
[2017-10-21 20:00] VITALS: BP 144/80
[2017-10-21] MEDS: traZODone 100 MG TAB PO SCH (21:59)
[2017-10-21] MEDS: rOPINIRole 1MG TAB PO SCH (21:59)
[2017-10-21] MEDS: RAMELTEON 8 MG TAB (ROZEREM) PO PRN (22:00)
[2017-10-22] MEDS: CEPHALEXIN 500 MG CAP PO SCH (05:41)
[2017-10-22] MEDS: LevoFLOXacin 500 MG TABLET PO SCH (05:41)
[2017-10-22] MEDS: LEVOTHYROXINE 100MCG TABLET (0.1MG) PO SCH (05:41)
[2017-10-22] MEDS: ACETAMINOPHEN 500 MG TAB PO PRN ×2 (05:41→12:29)
[2017-10-22 06:00] VITALS: BP 136/59
[2017-10-22 06:35] LABS: MEAN CORPUSCULAR HEMOGLOBIN 29.9 pg (27.0-33.0); MEAN CORPUSCULAR HGB CONC 31.8 g/dl (32.0-36.5); PLATELET COUNT, AUTOMATED 131 10^3/uL (150-450); RED CELL DISTRIBUTION WIDTH 15.9 % (11.5-14.5)
[2017-10-22] MEDS: DULoxetine 30 MG CAP (CYMBALTA) PO SCH (08:25)
[2017-10-22] MEDS: ASPIRIN 325 MG TAB PO SCH (08:25)
[2017-10-22] MEDS: NYSTATIN 100,000 UNITS/GM TOPICAL PWD 15 GM TOP SCH ×2 (08:25→20:51)
[2017-10-22] MEDS: OMEPRAZOLE 20 MG CAP PO SCH (08:25)
[2017-10-22] MEDS: PREGABALIN 100 MG CAP (LYRICA) PO SCH ×2 (08:25→20:47)
[2017-10-22] MEDS: LACTOBACILLUS ACIDOPHILUS CAP (BACID) PO SCH ×2 (08:25→20:47)
[2017-10-22 14:00] VITALS: BP 132/60
[2017-10-22 20:00] VITALS: BP 123/59
[2017-10-22] MEDS: rOPINIRole 1MG TAB PO SCH (20:47)
[2017-10-22] MEDS: traZODone 100 MG TAB PO SCH (20:47)
[2017-10-22] MEDS: RAMELTEON 8 MG TAB (ROZEREM) PO PRN (20:49)
[2017-10-23 06:00] VITALS: BP 129/64
[2017-10-23] MEDS: LEVOTHYROXINE 100MCG TABLET (0.1MG) PO SCH (06:05)
[2017-10-23] MEDS: LevoFLOXacin 500 MG TABLET PO SCH (06:05)
[2017-10-23] MEDS: ACETAMINOPHEN 500 MG TAB PO PRN ×2 (06:58→21:34)
[2017-10-23 07:03] LABS: MEAN CORPUSCULAR HEMOGLOBIN 29.4 pg (27.0-33.0); MEAN CORPUSCULAR HGB CONC 31.2 g/dl (32.0-36.5); MEAN CORPUSCULAR VOLUME 94.3 fl (80.0-96.0); PLATELET COUNT, AUTOMATED 137 10^3/uL (150-450); WHITE BLOOD COUNT 3.1 10^3/uL (4.0-10.0)
[2017-10-23] MEDS: PREGABALIN 100 MG CAP (LYRICA) PO SCH ×2 (08:52→21:35)
[2017-10-23] MEDS: LACTOBACILLUS ACIDOPHILUS CAP (BACID) PO SCH ×2 (08:52→21:33)
[2017-10-23] MEDS: NYSTATIN 100,000 UNITS/GM TOPICAL PWD 15 GM TOP SCH ×2 (08:53→21:35)
[2017-10-23] MEDS: ASPIRIN 325 MG TAB PO SCH (08:53)
[2017-10-23] MEDS: OMEPRAZOLE 20 MG CAP PO SCH (08:53)
[2017-10-23] MEDS: DULoxetine 30 MG CAP (CYMBALTA) PO SCH (08:53)
[2017-10-23 14:00] VITALS: BP 130/62
[2017-10-23 20:00] VITALS: BP 132/67
[2017-10-23] MEDS: traZODone 100 MG TAB PO SCH (21:35)
[2017-10-23] MEDS: rOPINIRole 1MG TAB PO SCH (21:35)
[2017-10-23] MEDS: RAMELTEON 8 MG TAB (ROZEREM) PO PRN (22:18)
[2017-10-24] MEDS: ACETAMINOPHEN 500 MG TAB PO PRN ×3 (04:34→21:44)
[2017-10-24] MEDS: LEVOTHYROXINE 100MCG TABLET (0.1MG) PO SCH (05:58)
[2017-10-24 06:00] VITALS: BP 143/80
[2017-10-24 08:46] LABS: MEAN CORPUSCULAR HEMOGLOBIN 29.9 pg (27.0-33.0); MEAN CORPUSCULAR HGB CONC 31.5 g/dl (32.0-36.5); MEAN CORPUSCULAR VOLUME 94.6 fl (80.0-96.0); PLATELET COUNT, AUTOMATED 173 10^3/uL (150-450); RED CELL DISTRIBUTION WIDTH 15.9 % (11.5-14.5); WHITE BLOOD COUNT 3.3 10^3/uL (4.0-10.0)
[2017-10-24] MEDS: NYSTATIN 100,000 UNITS/GM TOPICAL PWD 15 GM TOP SCH ×2 (08:58→21:45)
[2017-10-24] MEDS: PREGABALIN 100 MG CAP (LYRICA) PO SCH ×2 (08:59→21:45)
[2017-10-24] MEDS: ASPIRIN 325 MG TAB PO SCH (08:59)
[2017-10-24] MEDS: OMEPRAZOLE 20 MG CAP PO SCH (08:59)
[2017-10-24] MEDS: DULoxetine 30 MG CAP (CYMBALTA) PO SCH (08:59)
[2017-10-24] MEDS: LACTOBACILLUS ACIDOPHILUS CAP (BACID) PO SCH ×2 (08:59→21:45)
--- NOTE | 2017-10-24 11:34 | IPNPDOC ---
Date Seen The patient was seen on 10/24/17. 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 Patient's course complicated by deep venous thrombosis (DVT) in the left lower extremity leading to inferior vena cava (IVC) filter placement 10/11/17. Pt is transferred to the care of KIM Sethi [facility] 10/12/17. The Pt currently denies any fevers, chills, weakness, fatigue, Headache, Chest Pain, Shortness of breath, cough, palpitations, abdominal pain, N/V/D or changes in bowel or bladder habits. Pt states her pain is controlled. PMH: Chronic left hip/thigh pain. chronic LBP peripheral neuropathy chronic pain morbid obesity BMI 41.6 restless leg syndrome, hypothyroid anxiety, depression GERD Allergic rhinitis PSH: prior foot surgery tonsillectomy bilateral bunions. PE: GEN: 62yoF, appears stated age. Well-nourished, well developed. No acute distress. Alert and oriented x 3. Pleasant, interactive. HEENT: Normocephalic, atraumatic. Pupils are equal, round, and reactive to light. Extraocular movements are intact. No nystagmus appreciated. Sclera are nonicteric. Conjunctiva without injection. Nose midline. Moist mucous membranes. CHEST: Regular rate and rhythm, +S1, +S2 LUNGS: Clear to auscultation bilaterally. No wheezes, rales, or rhonchi. Breathing appears symmetric and easy. Patient is speaking in full sentences. No accessory muscle use. ABD: Round, soft, non-tender, non-distended. +Bowel sounds throughout. No rebound or guarding. No costovertebral angle tenderness. EXT: Trace LLE edema. Brace in place. SKIN: [place], dry, warm. Capillary refill <2sec. No rashes. NEURO: Alert and oriented x 3. Cranial nerves III-XII are intact. XR L Knee Status post femur and knee replacement XR Left hip Status post total left femur replacement. U/S LLE : The common femoral, superficial femoral, popliteal, and other deep venous structures compress normally and demonstrate normal color Doppler flow. Normal venous waveforms with augmentation are seen. Impression: No evidence of deep vein thrombosis in the left femoral popliteal venous system. GI panel 10/13/17 GASTROINTESTINAL (GI) PANEL Final NEGATIVE by MULTIPLEXED NUCLEIC ACID PCR 10/13 Organism 1 ESCHERICHIA COLI COLONY COUNT 30,000 CFU/ml URINE CULTURE Final 10/13 Organism 1 ESCHERICHIA COLI COLONY COUNT >100,000 CFU/ml Organism 2 PSEUDOMONAS AERUGINOSA COLONY COUNT >100,000 CFU/ml Organism 3 ENTEROCOCCUS FAECALIS COLONY COUNT 30,000 CFU/ml Peripheral smear 10/18/17 Mild pancytopenia, no significant morphologic abnormalities are noted. Clinical correlation is recommended. 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 1. S/P Wide resection of left femur, frozen section margins, total femur replacement megaprosthesis left hip hemiarthroplasty, and total knee hinge arthroplasty 09/22/17. Mgmt as per KIM Sethi. Outpt F/U with Orthopedic surgery. Dr Robledo. Outpt F/U planned with Oncology in [place]. PT/OT/ST as per Dr Leny ALVAREZ. Bowel care as per Dr Guero ALVAREZ. Pain control as per Dr Leny ALVAREZ. Pt remains on Keflex po prophylactic treatement as per Orthopedics. DVT prophylaxis. As per KIM Sethi. 2. LLE DVT post operative 10/10/17, S/P IVC filter 10/11/17. As per [facility] D/C Summary, Anticoagulation ASA 325 mg daily as dictated by Orthopedics and Vascular surgery. Pt was seen by Vascular surgery at [facility] 10/10/17 re Left CFV DVT, IVC filter was recommended. Per documentation, due to surgery and oozing from site, anticoagulation contraindicated. Plan was to confirm anticoagulation recommendations with Orthopedic surgeon, any other contraindications to anticoagulation. Subsequently we have discussed with the pt surgeon 10/14/17, Dr Robledo. He recommends ASA 325mg daily. Orthopedic surgery states that Pt is a bleeding risk related to her extensive surgery and does not recommend full dose anticoagulation at this time or in the near future. He clears the pt to receive Lovenox prophylactic dosing 40mg daily. Lovenox d/cd 10/18 related to decreased Plt. U/S LLE as above. 3. UTI. Afebrile. Pt denies symptoms. UC as above. Pt is currently on Keflex as per Orthopedics. D/C Azithromycin Completed course of Levaquin 10/23/17. Cont bacid po BID. 4. RLS. Cont requip. 5. Hypothyroid. Cont supplement. 6. GERD. PPI. 7. Postoperative anemia. Hgb 10.0. (8.1 [place]) Fe studies, B12, folate. Stool oB neg. Pt noted to have decreased Hgb, Plt and leukocytopenia over past 2- 3 days. Lovenox d/cd Cont ASA. peripheral smear as above Monitor. 8. Loose BM. Improved. Monitor. GI panel negative. Bacid po BID. VS, I&O, 24H, Fishbone Vital Signs/I&O Vital Signs Date Time Temp Pulse Resp B/P (MAP) Pulse Ox O2 Delivery O2 Flow Rate FiO2 10/24/17 06:00 98.5 89 18 143/80 (101) 93 Room Air Laboratory Data 24H LABS Item Value Date Time Heparin-induced Antibody 0.312 OD 10/18/17 1517 Laboratory Tests 2 10/24/17 08:21: Nucleated Red Blood Cells % (auto) 0.0 CBC/BMP Laboratory Tests 10/24/17 08:21 Red Blood Count 3.35 L, Mean Corpuscular Volume 94.6, Mean Corpuscular Hemoglobin 29.9, Mean Corpuscular Hemoglobin Concent 31.5 L, Red Cell Distribution Width 15.9 H Microbiology Microbiology 10/14/17 Stool Occult Blood (GONZALEZ) - Final, Complete 10/14/17 Stool Occult Blood (GONZALEZ) - Final, Complete Kelli Ardon Oct 24, 2017 11:34
[2017-10-24 14:00] VITALS: BP 148/67
--- NOTE | 2017-10-24 15:16 | IPNPDOC ---
PM&R Progress Note Tool Mechanic Progress Note DATE OF SERVICE: 10/24/17 DATE OF ADMISSION: Oct 12, 2017 at 14:24 INPATIENT REHABILITATION ADMISSION DAY: #13 SUBJECTIVE: Patient is a 62-year-old white female with 4 year history of left hip and thigh pain that was discovered to be a chondrosarcoma for which she ended up having the radical surgery on 09/22/2017 with total femur removal and the sciatic nerve was handled. The patient has expressed great willingness to participate in acute intensive rehabilitation. The patient is right-handed dominant and this has not been affected by her tumor or surgery. She is to use the THKAFO when out of bed. She has left foot drop and some sensory deficits. Pain is fairly well controlled. No complaints today and patient very motivated for therapies and increasing skill levels in everything but donning the abduction brace. ALLERGIES: See Below MEDICATIONS: Reviewed, see below. OBJECTIVE: VITAL SIGNS: Please see below. PHYSICAL EXAMINATION: GENERAL: Morbidly obese middle-aged white female in mild musculoskeletal distress standing with her hip adduction/AFO brace on. Patient alert and well oriented. HEENT: Normocephalic/atraumatic. CARDIOVASCULAR: Regular rate and rhythm with normal S1 and S2. 2/4 bilateral radial pulses. LUNGS: All rodriguez clear to auscultation. ABDOMEN: Obese with healing umbilical incision and normal bowel sounds in all quadrants. NEUROLOGICAL: Patient alert and oriented 4. Speech is clear coherent and appropriate. Affect is pleasant cooperative. Memory is intact. Bilateral upper extremity are sensory motor intact. Right lower extremity is sensory motor intact. Decreased sensation and foot drop in the left lower extremity in the sciatic innervated areas. SKIN: Rash on buttocks and perianal area appears to be fungal and improved with Left lateral thigh incision healed across without any openings or drainage and blister below the patella about to slough it's top. LABORATORY DATA: Reviewed. Please see below. MICROBIOLOGY: Please see below. IMAGING: No new imaging. DVT prophylaxis ordered?: Aspirin and JO ANN Hose. ASSESSMENT AND PLAN: 1. Rehabilitation of left CANDACE femur replacement and TKA secondary to radical resection of femur for chondrosarcoma: Patient very motivated and happy to participate in therapy. She is a bit decondition but without complaints. Patient progressing well in PT/OT thought limited by THAFO donning and doffing as well as LLE weakness. Patient making very good progress in all aspects except for donning and doffing her brace. However she and her are able to perform this. Patient still needs to improve bed mobility and going from supine to sitting. After discharge patient will be requiring further evaluation and care by orthopedics and by oncology as in her discharge plan. REHAB. TEAM ROUNDS: Patient near discharge goals in all areas now, except critical donning of the THKAFO. We will work more with her and her and look to get appropriate DME such as Bariatric (W/C, Commode, Trapeze, Shower Chair, and probable FWW). Velcro attachment of AFO is not doing well for postioning and support. We anticipate discharge on 10/26/17. Please see attached therapy notes below. 2. Anemia: H&H is 10.0 and 31.7% today on 10/24/17 which is improved. Mild pancytopenia on peripheral smear. We will continue to watch this as patient had been previously severely anemic. 3. Urinary tract infection: UA is highly consistent with a UTI though urine BELT POLISHER is likely be negative in light of patient being on Keflex. However I will go ahead and finish Levaquin to 10/23/17. Currently WBC is not suggestive infection at 3.1 and Uc&s suggestive more of contamination. 4. Hypoalbuminemia: Albumin 2.5 on 10/13/17. We will continue to observe and try improve nutrition as patient is certainly stressed by the extensive left thigh surgery. TIME SPENT: Chart Review, examination and documentation require greater than 25 minutes. Patient: Kathleen Antunez : 1955 Age/Sex: 62/F Unit#: [id number] Room/Bed: M4149/01 User: Tri Macdonald OT OT Date: 10/24/17 09:02 Type: OT Progress Time In * 07:00 Time Out * 08:45 OT Treatment Time-Minutes * 105 mins Type of Therapy Provided * Individual Precautions * Fall * Hip * WBAT * Other Unit * Acute Inpatient Rehab Pain Comment * Pt indicates L knee pain with weightbearing during transfer initially, though does not rate numerically. Pt reports this happened yesterday as well, though did dissipate over time. Subjective * Pt supine upon OT arrival, agreeable to tx. Cognition * Within Normal Limits Supine to Sit * Standby Assist Sit to Supine * Standby Assist Rolling * Standby Assist Bed Mobility Notes * SBA for all bed mobility with HOB flat and use of bed rail. Pt utilizes leg sheet metal installer for all bed mobility. Sit to Stand * Standby Assist Stand to Sit * Standby Assist Bed to Chair * Standby Assist Chair to Bed * Standby Assist Toilet/Commode * Standby Assist Shower/Tub * Standby Assist Functional Transfer Notes: * Pt performed all functional transfers including toilet>wc and wc<>bed as well as sit>stand x mult trials with SBA, all using RW. Good safety awareness. Pt able to transfer into shower using RW with SBA. Bathing * Minimum Assist Grooming * Independent Toileting * Modified Independent Eating * Modified Independent Meal Preparation/Home Management * Not Tested ADL Training Note * Pt performed toilet hygiene s/p bm in standing using unilateral support on RW with mod I. Pt then transferred into shower and completed bathing with brace on, though covered in plastic bag to keep foam dry, while seated on shower chair. Pt able to wash all parts while seated, requiring assist with buttocks only in standing. Pt then donned gown this date and slipper sock onto RLE and transferred to w/c. Grooming completed independently at sink, then pt returned to EOB>supine with use of leg sheet metal installer. In bed, THKAFO doffed and dried by spouse. A. Eating (include only those with PO intake): * 06.Independent Eating Comments: * See ADL note. Independent with dentures. B. Oral Hygiene (includes gums in edentulous pts): * 06.Independent Oral Hygiene Comments: * See ADL note. C. Toileting Hygiene (not transfers): * 06.Independent Toileting Hygiene Comments: * See ADL note. E. Shower/Bathe Self (not transfers, can be sponge bath): * 04.Sup/Touch Assist Shower/Bathe Self Comments: * See ADL note. H. Putting on/taking off footwear (includes TEDS and AFO): * 03.Partial/Mod Assist Putting on/taking off footwear Comments: * Assistance required with left sock. Sit-Static * G Sit-Dynamic * G Stand-Static * G- Stand-Dynamic * G- Balance Training Note * Sitting balance assessed EOB, standing RW OT Intervention Note * Following ADL, pt returned to EOB>supine and spouse doffed brace and donned ankle brace while supine. All needs met, call light in reach. OT Goal Note * Pt progressing well towards meeting goals and has good support system at home. Cont with OT plan of care. Discharge Recommendations * Home w/services Safe for discharge at this time * No Patient: Kathleen Antunez : 1955 Age/Sex: 62/F Unit#: [id number] Room/Bed: M4149/01 User: Renate Mason PTA PTA Date: 10/23/17 13:34 Type: PT Progress Note Time In * 09:55 Time Out * 11:25 PT Treatment Time-Minutes * 90 mins Type of Therapy Provided * Individual Precautions * Fall * Hip * WBAT * Other Unit * Acute Inpatient Rehab Pain Start of Session * 1 Pain End of Session * 1 Pain Comment * Pt reports 1-2/10 pain in (L)knee Subjective * Pt sitting in wc upon arrival. States she feels much better than she did yesterday, 1-2/10 pain in her (L) knee and her LB feels good. Cognition * Within Normal Limits Supine to Sit * Not Tested Sit to Supine * Minimum Assist Rolling * Not Tested Bed Mobility Notes * Pt requires Neo with hre (L)LE to get into bed Sit to Stand * Standby Assist Stand to Sit * Standby Assist Bed to Chair * Not Tested Chair to Bed * Standby Assist Toilet/Commode * Not Tested Transfer Training Notes * Pt requires SBA with sit<>stand transfers and is aware of safety measures regarding locking brakes on wc. Sit-Static * G Sit-Dynamic * G Stand-Static * G- Stand-Dynamic * G- Balance Training Note * Sitting balance assessed EOB, standing RW Ambulation Distance * 75 Feet Ambulation Level of Assist * Standby Assist Assistive Device Used * Rolling Walker * Splint/Brace * Gait Belt Other Assistive Device Used * THKAFO (must be donned for all ambulation). Weight BearingStatus * WBAT Left Able to Maintain Weight Bearing Status * Yes Wheelchair Distance * 200 feet Wheelchair Mobility Level of Assist * Standby Assist Wheelchair Mobility Comment * Pt propels W/C with bilateral UEs. Patient able to propel w/c and perform turns without physical assist. Pt performed distance x2 Stair Training Note * Has ramp to enter home and first floor set up. A. Roll Left and Right: * 88.Not Attempted B. Sit to Lying: * 04.Sup/Touch Assist C. Lying to Sitting on Side of Bed: * 88.Not Attempted D. Sit to Stand: * 05.Setup/clean up Asst Sit to Stand Comments: * for safety E. Chair/Scz-bz-Wvwgr Transfer: * 05.Setup/clean up Asst Chair/Hwh-wa-Fabgg Transfer Comments: * for safety F. Toilet Transfer: * 88.Not Attempted G. Car Transfer: * 88.Not Attempted H. Does the patient walk?: * 2. Yes I. Walk 10 Feet: * 05.Setup/clean up Asst J. Walk 50' with Two Turns: * 05.Setup/clean up Asst K. Walk 150 Feet: * 88.Not Attempted L. Walking 10' on uneven surfaces: * 88.Not Attempted M. 1 Step (curb): * 04.Sup/Touch Assist 1 Step (curb) Comments: * 4"step in paralell bars N. 4 Steps (with or without railing): * 88.Not Attempted O. 12 Steps (with or without railing): * 88.Not Attempted P. Picking up Object from the Floor (from a standing): * 88.Not Attempted Q. Does the patient use a w/c (other than just transport): * 1. Yes R. Wheel 50' with 2 Turns(seated in w/c): * 05.Setup/clean up Asst RR. What type of w/c?: * 1. Manual S. Wheel 150' (seated in w/c): * 05.Setup/clean up Asst SS. What type of w/c?: * 1. Manual Lower Extremity Exercised * Bilateral Sitting Exercises * Long Arc Quads * Marching * Hip Abduction * Toe Raises * Heel Raises * Other Other Sitting Exercises * (L)LE: Manual knee flexion stretch 5x 10-15sec(to tolerance), manual calf stretch 5x 20sec (R)LE: LAQ3.5# (2x10), hip flexion 2.5# (2x10), HS curl 2.5# (2x10), Manual stretches: HS, calf 5xea 20sec Standing Exercises * Other Other Standing Exercises * Parallel bars: step up/down 4"step 5x Therapeutic Exercises Note * Pt demonstrated good tolerance for exercises, was fatigued especially after the step ups in the parallel bars, but did very well. PT Interventions * Gait Training * Wheelchair Mobility * Therapeutic Excercise * Functional Training * Bed Mobility * Balance Activities * Safety/Precautions * Pt./Family Education * D/C Needs PT Progress Note * Pt reported she does not have stairs at home, but was concerned that she won't be able to step up on a curb or get into a store that has a step, therefore we practiced the step ups in the parallel bars. Pt did very well, but may need practice again for safety and endurance. Performed STM/DTM/TRP on pt's piriformis and gluteal mm again this date as it appeared to give pt good relief. Manual techniques were performed in standing. Pt was left supine in bed with brace off, wedge between legs, boot on (L)LE and (R)heel cleared from bed. Pt's call will within reach and nrsg notified. PT Goal Note * OOB for meals. ambulation into bathroom during daytime hours. brace not to be slept in to allow the skin to breath at this time. Spend around 15 minute periods in knee flexion t/o OOB hours. Discharge Recommendations * Home w/services Safe for discharge at this time * No Allergies Coded Allergies: No Known Allergies (Unverified , 10/12/17) Vital Signs Vital Signs Date Time Temp Pulse Resp B/P (MAP) Pulse Ox O2 Delivery O2 Flow Rate FiO2 10/24/17 14:00 98.3 88 18 148/67 (94) 98 Room Air Laboratory Data CBC/BMP Laboratory Tests 10/24/17 08:21 Red Blood Count 3.35 L, Mean Corpuscular Volume 94.6, Mean Corpuscular Hemoglobin 29.9, Mean Corpuscular Hemoglobin Concent 31.5 L, Red Cell Distribution Width 15.9 H Labs 24H Laboratory Tests 2 10/24/17 08:21: Nucleated Red Blood Cells % (auto) 0.0 Microbiology Microbiology 10/14/17 Stool Occult Blood (GONZALEZ) - Final, Complete 10/14/17 Stool Occult Blood (GONZALEZ) - Final, Complete Current Medications Current Medications Current Medications Acetaminophen (Tylenol Tab) 500 mg Q6HP PRN PO PAIN OR FEVER Last administered on 10/24/17t 12:21; Start 10/12/17 at 12:30; Stop 11/11/17 at 12:29 Aspirin (Aspirin) 325 mg DAILY PO Last administered on 10/24/17 08:59; Start 10/12/17 at 09:00; Stop 11/11/17 at 08:59 Azithromycin (Zithromax Tab) 250 mg DAILY PO Last administered on 10/17/17 08 :32; Start 10/14/17 at 09:00; Stop 10/17/17 at 12:41; Status DC Bisacodyl (Dulcolax Tab) 5 mg DAILYPRN PRN PO CONSTIPATION; Start 10/12/17 at 12:30; Stop 11/11/17 at 12:29 Cephalexin Monohydrate (Keflex) 500 mg Q8H PO Last administered on 10/22/17 05:41; Start 10/12/17 at 14:00; Stop 10/22/17 at 13:59; Status DC Cetirizine HCl (ZyrTEC) 10 mg DAILY PO ; Start 10/12/17 at 09:00; Stop at 09:57; Status DC Duloxetine HCl (Cymbalta) 90 mg DAILY PO Last administered on 10/24/17 08:59 ; Start 10/12/17 at 09:00; Stop 11/11/17 at 08:59 Enoxaparin Sodium (Lovenox) 40 mg DAILY SC Last administered on 10/18/17 08: 47; Start 10/15/17 at 09:00; Stop 10/18/17 at 15:03; Status DC Home Med (Med Rec Complete!) ASDIRECTED XX ; Start 10/12/17 at 15:30; Stop at 15:30; Status DC Lactobacillus Acidophilus (Bacid) 1 ea BID PO Last administered on 10/24/17 08:59; Start 10/14/17 at 09:00; Stop 11/13/17 at 08:59 Levofloxacin (Levaquin) 500 mg DAILY@06 PO Last administered on 10/23/17 06: 05; Start 10/17/17 at 06:00; Stop 10/23/17 at 06:01; Status DC Levothyroxine Sodium (Synthroid) 100 mcg DAILY@06 PO Last administered on 10/24 05:58; Start 10/12/17 at 06:00; Stop 11/11/17 at 05:59 Magnesium Hydroxide (Milk Of Magnesia) 30 ml DAILYPRN PRN PO CONSTIPATION; Start 10/12/17 at 12:30; Stop 11/11/17 at 12:29 Nystatin (Mycostatin Powder, Nystop) Buttocks/ perianal/ groin ... BID TOP Last administered on 10/24/17 08:58; Start 10/13/17 at 09:00; Stop 11/12/17 at 08:59 Omeprazole (PriLOSEC) 20 mg DAILY PO Last administered on 10/24/17 08:59; Start 10/12/17 at 09:00; Stop 11/11/17 at 08:59 Oxycodone HCl (Roxicodone, Oxyir) 5 mg Q4HP PRN PO PAIN SCALE 6-10 Last administered on 10/22/17 09:36; Start 10/12/17 at 12:30; Stop 10/28/17 at 23: 55 Pregabalin (Lyrica) 200 mg BID PO Last administered on 10/24/17 08:59; Start 10/12/17 at 21:00; Stop 10/28/17 at 23:55 Ramelteon (Rozerem) 8 mg QHS PRN PO SLEEP Last administered on 10/23/17 22:18 ; Start 10/15/17 at 21:45; Stop 11/14/17 at 21:44 Ropinirole HCl (Requip) 1.5 mg QHS PO Last administered on 10/23/17 21:35; Start 10/12/17 at 21:00; Stop 11/11/17 at 20:59 Trazodone HCl (Desyrel) 200 mg QHS PO Last administered on 10/23/17 21:35; Start 10/12/17 at 21:00; Stop 11/11/17 at 20:59 JESSICA CLAUDIO MD Oct 24, 2017 15:16
[2017-10-24 20:00] VITALS: BP 127/62
[2017-10-24] MEDS: rOPINIRole 1MG TAB PO SCH (21:44)
[2017-10-24] MEDS: traZODone 100 MG TAB PO SCH (21:45)
[2017-10-24] MEDS: RAMELTEON 8 MG TAB (ROZEREM) PO PRN (22:02)
[2017-10-25] MEDS: LEVOTHYROXINE 100MCG TABLET (0.1MG) PO SCH (05:29)
[2017-10-25] MEDS: ACETAMINOPHEN 500 MG TAB PO PRN ×3 (05:29→21:58)
[2017-10-25 06:00] VITALS: BP 129/67
[2017-10-25] MEDS: PREGABALIN 100 MG CAP (LYRICA) PO SCH ×2 (08:49→21:59)
[2017-10-25] MEDS: ASPIRIN 325 MG TAB PO SCH (08:49)
[2017-10-25] MEDS: LACTOBACILLUS ACIDOPHILUS CAP (BACID) PO SCH ×2 (08:49→21:59)
[2017-10-25] MEDS: DULoxetine 30 MG CAP (CYMBALTA) PO SCH (08:49)
[2017-10-25] MEDS: OMEPRAZOLE 20 MG CAP PO SCH (08:49)
[2017-10-25] MEDS: NYSTATIN 100,000 UNITS/GM TOPICAL PWD 15 GM TOP SCH ×2 (08:50→22:00)
[2017-10-25 09:26] LABS: MEAN CORPUSCULAR HEMOGLOBIN 29.2 pg (27.0-33.0); MEAN CORPUSCULAR HGB CONC 30.9 g/dl (32.0-36.5); MEAN CORPUSCULAR VOLUME 94.6 fl (80.0-96.0); PLATELET COUNT, AUTOMATED 135 10^3/uL (150-450); RED CELL DISTRIBUTION WIDTH 15.8 % (11.5-14.5); WHITE BLOOD COUNT 2.5 10^3/uL (4.0-10.0)
[2017-10-25] MEDS ORDERED: TRAZ-136 PO (13:42)
[2017-10-25] MEDS ORDERED: DULO1CAP2 PO (13:42)
[2017-10-25] MEDS ORDERED: LEVO100T5 PO (13:42)
[2017-10-25] MEDS ORDERED: ROPI0.5T PO (13:42)
[2017-10-25] MEDS ORDERED: LYRI200C PO (13:42)
[2017-10-25 14:00] VITALS: BP 135/64
--- NOTE | 2017-10-25 16:42 | IPNPDOC ---
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 The patient has expressed great willingness to participate in acute intensive rehabilitation. The patient is right-handed dominant and this has not been affected by her tumor or surgery. She is to use the THKAFO when out of bed. She has left foot drop and some sensory deficits. Pain is fairly well controlled. No complaints today and patient very motivated for therapies and increasing skill levels in everything but donning the abduction brace. ALLERGIES: See Below MEDICATIONS: Reviewed, see below. OBJECTIVE: VITAL SIGNS: Please see below. PHYSICAL EXAMINATION: GENERAL: Morbidly obese middle-aged white female in mild musculoskeletal distress standing with her hip adduction/AFO brace on. Patient alert and well oriented. HEENT: Normocephalic/atraumatic. CARDIOVASCULAR: Regular rate and rhythm with normal S1 and S2. 2/4 bilateral radial pulses. LUNGS: All rodriguez clear to auscultation. ABDOMEN: Obese with healing umbilical incision and normal bowel sounds in all quadrants. NEUROLOGICAL: Patient alert and oriented 4. Speech is clear coherent and appropriate. Affect is pleasant cooperative. Memory is intact. Bilateral upper extremity are sensory motor intact. Right lower extremity is sensory motor intact. Decreased sensation and foot drop in the left lower extremity in the sciatic innervated areas. SKIN: Rash on buttocks and perianal area appears to be fungal and improved with Left lateral thigh incision healed across without any openings or drainage and blister below the patella about to slough it's top. LABORATORY DATA: Reviewed. Please see below. MICROBIOLOGY: Please see below. IMAGING: No new imaging. DVT prophylaxis ordered?: Aspirin and JO ANN Hose. ASSESSMENT AND PLAN: 1. Rehabilitation of left CANDACE femur replacement and TKA secondary to radical resection of femur for chondrosarcoma: Patient very motivated and happy to participate in therapy. She is a bit decondition but without complaints. Patient progressing well in PT/OT thought limited by THAFO donning and doffing as well as LLE weakness. Patient making very good progress in all aspects except for donning and doffing her brace. However she and her are able to perform this. Patient still needs to improve bed mobility and going from supine to sitting. After discharge patient will be requiring further evaluation and care by orthopedics and by oncology as in her discharge plan. Patient near discharge goals in all areas now, except critical donning of the THKAFO. We will work more with her and her and look to get appropriate DME such as Bariatric (W/C, Commode, Trapeze, Shower Chair, and probable FWW). Velcro attachment of AFO is not doing well for positioning and support, we will megan the position and Mr. Antunez will take it to NISSA Mast to attach it. We anticipate discharge on 10/26/17. 2. Anemia: H&H is 9.2 and 29.8% on 10/25/17 which is stable in general. Mild pancytopenia on peripheral smear. We will continue to watch this as patient had been previously severely anemic. 3. Urinary tract infection: UA is highly consistent with a UTI though urine MOBILITY ENGINEER is likely be negative in light of patient being on Keflex. However I will go ahead and Levaquin was finished on 10/23/17. Currently WBC is not suggestive infection at 3.1 and Uc&s suggestive more of contamination. 4. Hypoalbuminemia: Albumin 2.5 on 10/13/17. We will continue to observe and try improve nutrition as patient is certainly stressed by the extensive left thigh surgery. TIME SPENT: Chart Review, examination and documentation require greater than 25 minutes. Allergies Coded Allergies: No Known Allergies (Unverified , 10/12/17) Vital Signs Vital Signs Date Time Temp Pulse Resp B/P (MAP) Pulse Ox O2 Delivery O2 Flow Rate FiO2 10/25/17 14:00 99.5 95 18 135/64 (87) 96 10/25/17 06:00 Room Air Laboratory Data CBC/BMP Laboratory Tests 10/25/17 09:10 Red Blood Count 3.15 L, Mean Corpuscular Volume 94.6, Mean Corpuscular Hemoglobin 29.2, Mean Corpuscular Hemoglobin Concent 30.9 L, Red Cell Distribution Width 15.8 H Labs 24H Laboratory Tests 2 10/25/17 09:10: Nucleated Red Blood Cells % (auto) 0.0 Current Medications Current Medications Current Medications Acetaminophen (Tylenol Tab) 500 mg Q6HP PRN PO PAIN OR FEVER Last administered on 10/25/17 11:35; Start 10/12/17 at 12:30; Stop 11/11/17 at 12:29 Aspirin (Aspirin) 325 mg DAILY PO Last administered on 10/25/17 08:49; Start 10/12/17 at 09:00; Stop 11/11/17 at 08:59 Azithromycin (Zithromax Tab) 250 mg DAILY PO Last administered on 10/17/17 08 :32; Start 10/14/17 at 09:00; Stop 10/17/17 at 12:41; Status DC Bisacodyl (Dulcolax Tab) 5 mg DAILYPRN PRN PO CONSTIPATION; Start 10/12/17 at 12:30; Stop 11/11/17 at 12:29 Cephalexin Monohydrate (Keflex) 500 mg Q8H PO Last administered on 10/22/17 05:41; Start 10/12/17 at 14:00; Stop 10/22/17 at 13:59; Status DC Cetirizine HCl (ZyrTEC) 10 mg DAILY PO ; Start 10/12/17 at 09:00; Stop at 09:57; Status DC Duloxetine HCl (Cymbalta) 90 mg DAILY PO Last administered on 10/25/17 08:49 ; Start 10/12/17 at 09:00; Stop 11/11/17 at 08:59 Enoxaparin Sodium (Lovenox) 40 mg DAILY SC Last administered on 10/18/17 08: 47; Start 10/15/17 at 09:00; Stop 10/18/17 at 15:03; Status DC Home Med (Med Rec Complete!) ASDIRECTED XX ; Start 10/12/17 at 15:30; Stop at 15:30; Status DC Lactobacillus Acidophilus (Bacid) 1 ea BID PO Last administered on 10/25/17 08:49; Start 10/14/17 at 09:00; Stop 11/13/17 at 08:59 Levofloxacin (Levaquin) 500 mg DAILY@06 PO Last administered on 10/23/17 06: 05; Start 10/17/17 at 06:00; Stop 10/23/17 at 06:01; Status DC Levothyroxine Sodium (Synthroid) 100 mcg DAILY@06 PO Last administered on 10/25 05:29; Start 10/12/17 at 06:00; Stop 11/11/17 at 05:59 Magnesium Hydroxide (Milk Of Magnesia) 30 ml DAILYPRN PRN PO CONSTIPATION; Start 10/12/17 at 12:30; Stop 11/11/17 at 12:29 Nystatin (Mycostatin Powder, Nystop) Buttocks/ perianal/ groin ... BID TOP Last administered on 10/25/17 08:50; Start 10/13/17 at 09:00; Stop 11/12/17 at 08:59 Omeprazole (PriLOSEC) 20 mg DAILY PO Last administered on 10/25/17 08:49; Start 10/12/17 at 09:00; Stop 11/11/17 at 08:59 Oxycodone HCl (Roxicodone, Oxyir) 5 mg Q4HP PRN PO PAIN SCALE 6-10 Last administered on 10/22/17 09:36; Start 10/12/17 at 12:30; Stop 10/28/17 at 23: 55 Pregabalin (Lyrica) 200 mg BID PO Last administered on 10/25/17 08:49; Start 10/12/17 at 21:00; Stop 10/28/17 at 23:55 Ramelteon (Rozerem) 8 mg QHS PRN PO SLEEP Last administered on 10/24/17 22:02 ; Start 10/15/17 at 21:45; Stop 11/14/17 at 21:44 Ropinirole HCl (Requip) 1.5 mg QHS PO Last administered on 10/24/17 21:44; Start 10/12/17 at 21:00; Stop 11/11/17 at 20:59 Trazodone HCl (Desyrel) 200 mg QHS PO Last administered on 10/24/17 21:45; Start 10/12/17 at 21:00; Stop 11/11/17 at 20:59 JESSICA CLAUDIO MD Oct 25, 2017 16:42
[2017-10-25 20:00] VITALS: BP 116/70
[2017-10-25] MEDS: rOPINIRole 1MG TAB PO SCH (21:56)
[2017-10-25] MEDS: traZODone 100 MG TAB PO SCH (21:57)
[2017-10-25] MEDS: RAMELTEON 8 MG TAB (ROZEREM) PO PRN (22:02)
[2017-10-26] MEDS: LEVOTHYROXINE 100MCG TABLET (0.1MG) PO SCH (06:29)
[2017-10-26] MEDS: ACETAMINOPHEN 500 MG TAB PO PRN (06:30)
[2017-10-26 06:39] VITALS: BP 127/58
[2017-10-26] MEDS: LACTOBACILLUS ACIDOPHILUS CAP (BACID) PO SCH (09:17)
[2017-10-26] MEDS: ASPIRIN 325 MG TAB PO SCH (09:17)
[2017-10-26] MEDS: OMEPRAZOLE 20 MG CAP PO SCH (09:17)
[2017-10-26] MEDS: PREGABALIN 100 MG CAP (LYRICA) PO SCH (09:17)
[2017-10-26] MEDS: DULoxetine 30 MG CAP (CYMBALTA) PO SCH (09:17)
[2017-10-26] MEDS: NYSTATIN 100,000 UNITS/GM TOPICAL PWD 15 GM TOP SCH (09:18)
--- NOTE | 2017-10-26 18:09 | PMRDS ---
DATE OF ADMISSION: 10/12/2017 DATE OF DISCHARGE: 10/26/2017 DISCHARGE DIAGNOSIS: Rehabilitation of radical resection of the left femur with megaprosthesis, total knee arthroplasty, and total knee arthroplasty. Replacement complicated by sciatic nerve involvement, left lower extremity weakness. HISTORY: The patient is a 62-year-old white female who is right-handed, morbidly obese, and developed chondrosarcoma of the femur and elected to have radical resection on 09/22/2017. The patient has a megaprosthesis replacing the shaft as well as a total knee arthroplasty and total hip arthroplasty on the left. Sciatic nerve involvement was part of the radical resection. The patient had posterior hip precaution and was placed in a thoracic hip, knee, ankle, foot orthosis to maintain appropriate alignment and positioning. There has been a little trouble with the ankle, foot orthosis Velcro attachment to the thoracic, hip, knee orthosis. Arrangements have been made for the patient's to take this in to Mr. Jay, the abrasive coating machine operator to fix that. However, the patient after multiple problems including severe anemia requiring transfusions was felt to be appropriate for musculoskeletal rehabilitation and was transferred here on 10/12/2017. PAST MEDICAL HISTORY: Her past medical history also includes: 1. Restless leg syndrome. 2. Hypothyroidism. 3. Prior neuropathic pain. 4. Anxiety. 5. Arthritis. 6. Depression. 7. Gastroesophageal reflux disease (GERD). 8. Chronic low back pain. 9. Obstructive sleep apnea. 10. The patient does have left footdrop related to the sciatic nerve involvement. PAST SURGICAL HISTORY: 1. Prior foot surgery. 2. Tonsillectomy. 3. Bilateral bunion. PROCEDURES PERFORMED ON THIS UNIT: Include: Plain x-rays of the thigh, hip, and knee along with venous Doppler of the left lower extremity where the patient had had a deep vein thrombosis (DVT) prior to admission here during her hospitalization in [place] at [facility]. LABORATORY DATA: Included: A peripheral smear as well as monitoring of her anemia, admitted with a hemoglobin and hematocrit of 8.7 and 27.4, and at 9.2 and 29.8 at discharge. The patient with notable hypoalbuminemia. Most recent value 10/14/2017 at 2.4 and calcium running between 8.0 and 8.4 during admission. Electrolytes normal throughout admission. BUN normal and creatinine low-normal. The patient with occasional elevated fasting blood sugars. Heparin-induced antibody was normal at 0.312. HOSPITAL COURSE: The patient was admitted to acute rehabilitation unit on 10/12/2017, started on a program of physical and occupational therapy with rehabilitation nursing physiatry and consultation from the medicine service to help manage the multiple medical problems noted above. The patient demonstrated early on knowledge of how to appropriately don and doff her abduction brace, however, requires assistance to do it. She did, however, show progress from minimal assist in bed mobility, moderate assist in bathing, standby assist in grooming, but maximum assist in dressing her lower body, total assist in toileting with fair plus standing balance at the time of admission to modified independence in mobility, transfers and bed mobility, and modified independence in toileting, eating, and improvement to good minus standing balance, and in physical therapy starting at supervision touch-assist for manual wheelchair mobility to totally dependent for gaiting attempts to independent in ambulating with front wheel walker for 150 feet or 50 feet with two turns, being able with supervision touch to step. Home is ramped and being independent in using a manual wheelchair for greater than 150 feet. Patient and family education was also given during the course of the admission and the patient is discharged to home with her who has also been involved in her training and is very attentive and has done a good job of learning skills and how to assist his . She is to followup with her primary care provider, Dr. Brenda Castanon, within a week and her orthopedist, Dr. Shar Robledo, in two weeks. She is on a regular diet. She has no known allergies. MEDICATIONS ON DISCHARGE: - Tylenol - she may use her buprenorphine 5 mcg per hour patch in conjunction with her primary care's direction for pain - Zyrtec 10 mg daily for allergies - Colace 100 mg twice a day for bowel program - Cymbalta 90 mg daily for nerve pain and mood - Synthroid 100 mcg daily for hypothyroidism - melatonin 1 mg daily to assist sleep - milk of magnesia 30 mL daily as needed for constipation - omeprazole 20 mg daily for acid reduction - Requip 1.5 mg at bedtime for restless leg syndrome - senna 17.2 mg at bedtime for bowel program - trazodone 200 mg at bedtime for sleep and nerve pain assistance COMPLICATIONS DURING ADMISSION: None. DISCHARGE PLAN: As noted above. TIME SPENT ON DISCHARGE: Greater than 35 minutes.
== END 2017-10-26 13:30 | disposition home health service (06) | DRG 862 ==
LOC: EDSTATUS 10:15 → M PM&R 14:24
PROVIDERS: ADMIT Physical Medicine & Rehabilitation; ATTEND Physical Medicine & Rehabilitation
DX: Z47.1 Aftercare following joint replacement surgery (principal); N39.0 Urinary tract infection, site not specified; E66.01 Morbid (severe) obesity due to excess calories; E88.09 Other disorders of plasma-protein metabolism, not elsewhere classified; G62.9 Polyneuropathy, unspecified; Z68.41 Body mass index [BMI] 40.0-44.9, adult; G25.81 Restless legs syndrome; D64.9 Anemia, unspecified; M21.372 Foot drop, left foot; R19.7 Diarrhea, unspecified; J30.9 Allergic rhinitis, unspecified; M54.5 Low back pain; E03.9 Hypothyroidism, unspecified; K21.9 Gastro-esophageal reflux disease without esophagitis; Z79.899 Other long term (current) drug therapy; Z86.718 Personal history of other venous thrombosis and embolism; B96.20 Unspecified Escherichia coli [E. coli] as the cause of diseases classified elsewhere; B96.5 Pseudomonas (aeruginosa) (mallei) (pseudomallei) as the cause of diseases classified elsewhere; B95.2 Enterococcus as the cause of diseases classified elsewhere